=== PATIENT | female | born 1995 | race African-American/Black ===

== ENCOUNTER 2020-05-07 10:15 | Outpatient (REF) | payer MEDICAID, SELFPAY | END 2020-05-07 10:16 | disposition home or self-care (01) | LOC: HO.LAB 10:15 | PROVIDERS: Visit Provider Internal Medicine | DX: Z20.828 Contact with and (suspected) exposure to other viral communicable diseases (principal) | CPT/HCPCS: U0003 ==

== ENCOUNTER → 2020-05-20 10:45 | Outpatient (BNVA) | payer MEDICAID, SELFPAY | PROVIDERS: Visit Provider Advanced Practice Midwife | DX: Z30.42 Encounter for surveillance of injectable contraceptive (principal) | CPT/HCPCS: 96372; 99211; J1050 ==

== ENCOUNTER 2021-01-29 23:44 | Emergency (ER) | payer MEDICAID, SELFPAY ==
[2021-01-30] VITALS: BP 124/79; PULSE 68; RESP 18; TEMP 36.6; O2SAT 99; BMI 36.6
--- NOTE | 2021-01-30 00:52 | ED_ITS ---
HPI - Abdominal Pain General Chief Complaint: Abdominal Pain Stated Complaint: vaginal pain Time Seen by Provider: 01/30/21 00:41 Source: patient Mode of arrival: ambulatory Limitations: no limitations History of Present Illness HPI narrative: Patient comes emergency room complaining of vaginal pain. Patient states that approximately 3 days ago, she had a thomas friend staying at her place, patient states that she was too drunk and does not remember anything. Patient states that in the morning after being drunk she woke up complaining of vaginal pain. Patient requesting a test and requesting to be treated for possible STDs patient complaining of continued vaginal discomfort, no discharge, no vaginal bleeding. Related Data Previous Rx's Medication Instructions Recorded doxycycline hyclate 100 mg PO BID #14 tab 01/30/21 metronidazole 250 mg PO BID #14 tab 01/30/21 Allergies Allergy/AdvReac Type Severity Reaction Status Date / Time No Known Allergies Allergy Unverified 03/24/20 17:37 [No Known Allergies*] dogs/cats Allergy Unknown Uncoded 03/02/20 00:00 latex Allergy Unknown rash Uncoded 03/02/20 00:00 Review of Systems Review of Systems Constitutional : No Weight loss, No Fever, No Chills, No Night Sweats, No Fatigue, No Malaise ENT/Mouth : No Hearing loss, No Ear Pain, No Nasal Congestion, No Sinus Pain, No Hoarseness, No sore throat, No Rhinorrhea, No Swallowing Difficulty Eyes: No Eye Pain, No Swelling, No Redness, No Foreign Body, No Discharge, No Vision Changes Cardiovascular : No Chest Pain, No SOB, No Dyspnea on Exertion, No Orthopnea, No Edema, No Palpitations Respiratory : No Cough, No Sputum, No Wheezing, No Smoke Exposure, No Dyspnea Gastrointestinal : No Nausea, No Vomiting, No Diarrhea, No Constipation, No abdominal Pain, No Hematochezia, No Melena Genitourinary : no irregular bleeding, No Dysuria, No Urinary Frequency, No Hematuria, No Urinary Incontinence, No Urgency, No Flank Pain, No Urinary Flow Changes, No Hesitancy, complaining of constant vaginal discomfort Musculoskeletal : No joint pain, No Myalgias, No Joint Swelling Skin : No Skin Lesions, No rash Neuro : No Weakness, No Numbness, No Paresthesias, No Loss of Consciousness, No Dizziness, No Headache Psych : No Anxiety/Panic, No Depression, No SI/HI/AH/VH, No Social Issues, Heme/Lymph: No Bruising, No Bleeding,No Lymphadenopathy Endocrine : No Polyuria, No Polydipsia, No Temperature Intolerance Physical Exam Vital Signs: Vital Signs: Last Vital Signs Temp 97.9 F 01/30/21 00:00 Pulse 68 01/30/21 00:00 Resp 18 01/30/21 00:00 BP 124/79 01/30/21 00:00 Pulse Ox 99 01/30/21 00:00 Body Mass Index 36.6 Appearance: Alert. Oriented X3. No acute distress. Eyes: Pupils equal, round and reactive to light. ENT: Pharynx normal. Neck: Normal inspection. Neck supple. No lymph nodes noted. No crepitus CVS: Normal heart rate and rhythm. Pulses normal. Normal S1 and S2 Respiratory: No respiratory distress. Breath sounds normal. No Wheezing. No rales Abdomen: Soft and nontender. No rigidity. No distention. : Normal cervical and vaginal exam Skin: Skin warm and dry. Normal skin color. Normal skin turgor. Extremities: No lower extremity edema. No Lacerations. No Rash Neuro: Oriented X 3. No motor deficit. No sensory deficit. Moving all extermities. No slurred speech. Course Course Course Narrative: test negative. Patient was getting a 1st dose of IM ceftriaxone, p.o. doxycycline and metronidazole. Patient however is cells have this is MDM - Abdominal Pain Lab Data Labs: Lab Results 01/30/21 01/30/21 Range/Units 01:04 01:05 Urine Color YELLOW Urine Appearance CLEAR Urine pH 6.0 (5.0-8.0) Ur Specific [place] 1.020 (1.005-1.025) Urine Protein NEG (NEG-TRACE) MG/DL Urine Glucose (UA) NEG (NEG) MG/DL Urine Ketones NEG (NEG) MG/DL Urine Blood NEG (NEG) Urine Nitrite NEG (NEG) Ur Leukocyte Esterase NEG (NEG) Urine Test NEGATIVE (NEGATIVE) Discharge Plan Discharge Clinical Impression: Possible exposure to STD Patient Disposition: Home, Self-Care Instructions: Sexually Transmitted Diseases (ED) Additional Instructions: [facility] and requested additional testing such as HIV and hepatitis panel. Please follow-up with your primary care physician tomorrow. If you have any worsening or new symptoms, please return to the emergency room or call 911 Prescriptions: New doxycycline hyclate 100 mg tablet 100 mg PO BID Qty: 14 RF: 0 metronidazole 250 mg tablet 250 mg PO BID Qty: 14 RF: 0 No Action medroxyprogesterone [Depo-Provera] 150 mg/mL syringe 150 mg IM ONCE Qty: 1 RF: 0 PMFSH Past Medical History Medical History No known health problems Social History Social History Advance Directives: No Patient : No
[2021-01-30 01:14] LABS: Glucose Urine UA NEG (NEG); Leukocyte Esterase Urine NEG (NEG); Nitrite Urine NEG (NEG); Urine Blood NEG (NEG); Urine Ketones NEG (NEG); Urine Protein NEG (NEG-TRACE)
[2021-01-30 01:15] LABS: UPreg QC Valid YES; Urine Pregnancy NEGATIVE (NEGATIVE)
[2021-01-30 01:16] LABS: Appearance Urine CLEAR; Color Urine YELLOW
[2021-01-30] MEDS: metroNIDAZOLE 500 MG TABLET PO (01:37)
[2021-01-30] MEDS: cefTRIAXone sodium 500 MG, Lidocaine HCl 1 % MPF 1 ML IM (01:38)
[2021-01-30 03:00] LABS: CT PCR NOT DETECTED (Not Detect.); NG PCR NOT DETECTED (Not Detect.)
[2021-01-30 09:10] LABS: BV Int Neg Control Negative (Negative); BV Int Pos Control Positive (Positive)
== END 2021-01-30 01:52 | disposition home or self-care (01) ==
PROVIDERS: Emergency Provider Emergency Medicine
DX: Z11.3 Encounter for screening for infections with a predominantly sexual mode of transmission (principal); R10.2 Pelvic and perineal pain
CPT/HCPCS: 81003; 81025; 87480; 87491; 87510; 87591; 87660; 96372; 99283; 99284; J0696

== ENCOUNTER 2021-04-13 12:36 | Emergency (ER) | payer MEDICAID, SELFPAY ==
[2021-04-13 13:42] VITALS: BP 125/95; PULSE 88; RESP 16; TEMP 36.4; O2SAT 100; BMI 35.3
--- NOTE | 2021-04-13 14:06 | ED_ITS ---
HPI - Back Pain/Injury General Chief Complaint: Back Pain/Injury Stated Complaint: BACK INJ WORK RELATED Time Seen by Provider: 04/13/21 13:55 Source: patient Mode of arrival: ambulatory History of Present Illness HPI Narrative: 26-year-old female with no significant past medical history presenting to the ED complaining of acute onset low back pain s/p repositioning patient at work on Saturday. 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 Denies direct trauma/fall. Denies radiation of pain down lower extremities. Denies numbness, tingling, weakness, urinary incontinence/retention, hematuria, flank pain MD elicited complaint: back pain Related Data Previous Rx's Medication Instructions Recorded doxycycline hyclate 100 mg tablet 100 mg PO BID #14 tab 01/30/21 metronidazole 250 mg tablet 250 mg PO BID #14 tab 01/30/21 acetaminophen 500 mg tablet 500 mg PO Q6H PRN #20 tab 04/13/21 (Tylenol Extra Strength) cyclobenzaprine 5 mg tablet 5 mg PO Q8H PRN 5 Days #14 tab 04/13/21 lidocaine 5 % topical patch 1 patch TOPICAL DAILY PRN #30 ea 04/13/21 (Lidoderm) MDD remove after 12 hours naproxen 500 mg tablet 500 mg PO BID PRN 10 Days #20 tab 04/13/21 Allergies Allergy/AdvReac Type Severity Reaction Status Date / Time No Known Allergies Allergy Verified 04/13/21 13:42 [No Known Allergies*] dogs/cats Allergy Unknown Watery Eye Uncoded 04/13/21 13:42 latex Allergy Unknown rash Uncoded 03/02/20 00:00 Review of Systems Review of Systems: Constitutional: No Fever, No Chills ENT/Mouth: No Ear Pain, No Nasal Congestion, No sore throat, No Rhinorrhea Cardiovascular: No Chest Pain, No SOB Respiratory: No Cough, No Wheezing Gastrointestinal: No Nausea, No Vomiting, No Abdominal pain Genitourinary: No Dysuria, No Urinary Frequency, No Hematuria, No Urinary Incontinence/retention, No Flank Pain Musculoskeletal: + joint pain, No Myalgias, No Joint Swelling Skin: No Skin Lesions, No rash Neuro: No Weakness, No Numbness, No Paresthesias Yes all other systems are reviewed and are negative Neurologic: Denies Sensory deficit (Neuro) PMFSH Past Medical History Attestation statement: The following information was validated with the patient. Source: nursing notes reviewed Medical History No known health problems Social History Social History Advance Directives: No Advance Directives Information Provided: No Physical Exam Vital Signs: Vital Signs: Last Vital Signs Temp 97.6 F 04/13/21 13:42 Pulse 88 04/13/21 13:42 Resp 16 04/13/21 13:42 BP 125/95 H 04/13/21 13:42 Pulse Ox 100 04/13/21 13:42 Body Mass Index 35.3 Const: General: cooperative and healthy appearing Orientation/consciousness: patient oriented x3 Limitations: no limitations HENMT: Head: Yes normal to inspection Ears: hearing grossly normal bilaterally General nose exam: Normal external nose present Face and sinus: Yes normal facial exam Eyes: General: appearance normal, both eyes and all related structures EOM: EOMs intact bilaterally Neck: Other: No midline cervical spinous tenderness/step-off or deformity Neck: Yes normal visual inspection Resp: Effort & Inspection: normal respiratory effort and not labored Cardio: Rate: regular rate : General: Yes no CVA tenderness Back/Spine/Pelvis: Other: No midline thoracic/lumbar spinous tenderness/step- off or deformity. Bilateral thoracic & lumbar paraspinal MSK tenderness to palpation Back: no CVA tenderness Skin: Rashes: no rashes Wounds: no wounds Neuro: Other: No saddle anesthesia, ambulating with steady gait, strength intact throughout General: patient oriented x3, gait normal, tone normal, moves all extremities and no focal motor deficits Gait exam (Neuro): Normal gait present Motor exam (neuro): 5/5 motor strength present throughout and Normal motor muscle tone present throughout Sensory Exam: No Sensory deficit (Neuro) Extrem: General: Yes normal to inspection MDM - Back Pain/Injury MDM Narrative Medical decision making narrative: 26-year-old female with no significant past medical history presenting to the ED complaining of acute onset low back pain s/p repositioning patient at work on Saturday. On exam VSS, NAD/well-appearing, no midline spinous tenderness throughout, no red flag symptoms, ambulating with steady gait, no saddle anesthesia. Likely MSK pain/strain/muscle spasming. Low concern for cauda equina/cord compression Will symptomatically treat and have patient follow-up with [facility] Medical Records Attestation: I reviewed the patient's medical records. Lab Data Attestation: I reviewed the patient's lab results. Discharge Plan Discharge Clinical Impression: Strain of lumbar region Qualifiers: Encounter type: initial encounter Qualified Code(s): S39.012A - Strain of muscle, fascia and tendon of lower back, initial encounter Patient Disposition: Home, Self-Care Instructions: Acute Low Back Pain (ED) Additional Instructions: Your pain is likely musculoskeletal Flexeril is a muscle relaxer, take at night as it makes you drowsy, do not drive, drink alcohol, or operate machinery while taking it Naproxen as an anti-inflammatory / pain medication, take with food Lidoderm patches are numbing patches, apply to painful area In addition take Tylenol at home If symptoms persist or worsen, pain becomes unbearable, you developed urinary retention or incontinence, or weakness return to the ED Prescriptions: New acetaminophen [Tylenol Extra Strength] 500 mg tablet 500 mg PO Q6H PRN (Reason: pain or fever) Qty: 20 RF: 0 lidocaine [Lidoderm] 5 % adhesive patch,medicated 1 patch topical DAILY MDD remove after 12 hours PRN (Reason: pain) Qty: 30 RF: 0 naproxen 500 mg tablet 500 mg PO BID PRN (Reason: pain) 10 Days Qty: 20 RF: 0 cyclobenzaprine 5 mg tablet 5 mg PO Q8H PRN (Reason: pain (scale score 7-10)) 5 Days Qty: 14 RF: 0 No Action doxycycline hyclate 100 mg tablet 100 mg PO BID Qty: 14 RF: 0 metronidazole 250 mg tablet 250 mg PO BID Qty: 14 RF: 0 medroxyprogesterone [Depo-Provera] 150 mg/mL syringe 150 mg IM ONCE Qty: 1 RF: 0 Referrals: [facility] [Outside] - 3 days Stand Alone Forms: Work/School Release
== END 2021-04-13 14:40 | disposition home or self-care (01) ==
PROVIDERS: Emergency Provider Emergency Medicine
DX: S39.012A Strain of muscle, fascia and tendon of lower back, initial encounter (principal); X50.1XXA Overexertion from prolonged static or awkward postures, initial encounter; Y93.9 Activity, unspecified; Y92.9 Unspecified place or not applicable; Y99.0 Civilian activity done for income or pay
CPT/HCPCS: 99283

== ENCOUNTER → 2021-04-21 10:42 | Outpatient (BNVA) | payer MEDICAID, SELFPAY | PROVIDERS: Visit Provider Physician Assistant | DX: S39.012A Strain of muscle, fascia and tendon of lower back, initial encounter (principal); X50.1XXA Overexertion from prolonged static or awkward postures, initial encounter | CPT/HCPCS: 99203 ==

== ENCOUNTER → 2021-04-27 13:55 | Outpatient (BNVA) | payer MEDICAID, SELFPAY | PROVIDERS: Visit Provider Physician Assistant | DX: S39.012A Strain of muscle, fascia and tendon of lower back, initial encounter (principal); X50.1XXA Overexertion from prolonged static or awkward postures, initial encounter | CPT/HCPCS: 99213 ==

== ENCOUNTER 2021-10-12 10:13 | Emergency (ER) | payer MEDICAID, SELFPAY ==
--- NOTE | ~2021-10-12 | US_ITS ---
EXAMINATION: US OBSTETRICAL ULTRASOUND CLINICAL INFORMATION: Abdominal pain. COMPARISON: None. LMP: 09/08/2021. Gestational age by maternal dates is 4 weeks 6 days. Estimated date of delivery by maternal dates is 06/15/2022. TECHNIQUE: Transabdominal and endovaginal sonographic evaluation of the pelvis. FINDINGS: Anteverted uterus. There is a complex cystic structure in the endometrial cavity identified. No associated yolk sac or pole. This has complex internal echoes. If this were a gestational sac this has a mean sac diameter of 1.94 cm corresponding to a gestational age of 7 weeks 0 days MATERNAL ADNEXA: The right maternal ovary measures 4 x 2.1 x 3.2 cm. The left maternal ovary measures 2.9 x 2 x 2.1 cm. There is no significant maternal adnexal mass. No maternal pelvic ascites. US/US OB pelvic and transvaginal IMPRESSION: No definite intrauterine identified. No evidence of ectopic . Within the endometrial canal there is a complex area of fluid. There is no yolk sac or gestational sac. This could represent blighted ovum. Based on the size, this is less likely to represent a normal gestational sac with simply early stage of . Continued follow-up.
[2021-10-12 10:23] VITALS: BP 128/73; PULSE 99; RESP 16; TEMP 36.7; O2SAT 98; BMI 36.6
[2021-10-12 10:38] LABS: MANUAL DIFF FLAG NO
[2021-10-12 10:41] LABS: Basophils Percent Auto 0.4 % (0-2); Eosinophils Absolute Auto 0.3 X10*3/uL (0.0-0.4); Eosinophils Percent Auto 3.1 % (0-4); Hematocrit 39.2 % (37.0-47.0); Imm Gran Abs Auto 0.03 X10*3/uL (0.00-0.03); Imm Gran Pct Auto 0.4 % (0.0-0.4); Lymphocytes Absolute Auto 2.2 X10*3/uL (1.2-4.9); Lymphocytes Percent Auto 26.6 % (20-40); Mean Corpuscular HGB Conc 33.2 g/dl (31.0-35.0); Mean Corpuscular Hemoglobin 25.8 pg (27.0-33.0); Mean Corpuscular Volume 77.8 fL (80.0-98.0); Mean Platelet Volume 10.2 fL (9.4-12.3); Monocytes Absolute Auto 0.5 X10*3/uL (0.1-1.2); Monocytes Percent Auto 6.1 % (2-11); Neutrophils Absolute Auto 5.1 x10*3/uL (2.0-8.3); Neutrophils Percent Auto 63.4 % (45-73); Platelet Count 301 X10*3/uL (160-400); Red Blood Count 5.04 X10*6/uL (4.20-5.50); Red Cell Distribution Width 16.3 % (11.0-16.0); White Blood Count 8.1 X10*3/uL (4.8-10.8)
[2021-10-12 10:44] LABS: Appearance Urine CLEAR; Color Urine YELLOW; Glucose Urine UA NEG (NEG); Leukocyte Esterase Urine TRACE (NEG); Nitrite Urine NEG (NEG); UACC Culture Trigger YES; Urine Blood TRACE (NEG); Urine Ketones NEG (NEG); Urine Protein NEG (NEG-TRACE)
[2021-10-12 10:45] LABS: UPreg QC Valid YES; Urine Pregnancy POSITIVE (NEGATIVE)
[2021-10-12 10:54] LABS: Anion Gap 11 (12-20); Blood Urea Nitrogen 6 mg/dL (9-16); Calcium 9.2 mg/dL (8.4-10.2); Carbon Dioxide 25 mmol/L (22-29); Chloride 107 mmol/L (96-108); Estimated Glomerular Filt Rate > 60; Glucose Random 104 mg/dL (60-115); Potassium 3.7 mmol/L (3.3-5.1); Sodium 139 mmol/L (135-145)
[2021-10-12 10:56] LABS: Mucus Urine 1+ /LPF
[2021-10-12 10:57] LABS: Squamous Epithelial Cell Urine 2+ /LPF
[2021-10-12 11:04] LABS: HCG Quantitative 209 mIU/mL
--- NOTE | 2021-10-12 11:41 | ED.ABDPAIN ---
HPI - Abdominal Pain General Chief Complaint: Abdominal Pain Stated Complaint: abd pain Time Seen by Provider: 10/12/21 11:13 Source: patient Mode of arrival: ambulatory Limitations: no limitations History of Present Illness HPI narrative: Patient is a 26 year old female presenting to the emergency department today with epigastric pain and being . Patient states that she found out yesterday she is and has been having epigastric pain. Patient states that she has had 2 previous pregnancies with healthy children. Patient denies any vaginal bleeding, vaginal discharge, dizziness, lightheadedness, nausea, vomiting, fever, chills, blurry vision, double vision, loss of vision, chest pain, difficulty breathing, shortness of breath, back pain, night sweats, pain with urination, increased urinary frequency, increased urinary urgency, blood in her urine or stool, syncope or a near syncopal episode, recent trauma or falls, bowel incontinence, bladder incontinence, bowel retention, bladder retention, or any other complaints at this time. MD elicited complaint: abdominal pain Related Data Previous Rx's Medication Instructions Recorded doxycycline hyclate 100 mg tablet 100 mg PO BID #14 tab 01/30/21 metronidazole 250 mg tablet 250 mg PO BID #14 tab 01/30/21 acetaminophen 500 mg tablet 500 mg PO Q6H PRN #20 tab 04/13/21 (Tylenol Extra Strength) cyclobenzaprine 5 mg tablet 5 mg PO Q8H PRN 5 Days #14 tab 04/13/21 lidocaine 5 % topical patch 1 patch TOPICAL DAILY PRN #30 ea 04/13/21 (Lidoderm) MDD remove after 12 hours naproxen 500 mg tablet 500 mg PO BID PRN 10 Days #20 tab 04/13/21 Allergies Allergy/AdvReac Type Severity Reaction Status Date / Time No Known Allergies Allergy Verified 04/13/21 13:42 [No Known Allergies*] dogs/cats Allergy Unknown Watery Eye Uncoded 04/13/21 13:42 latex Allergy Unknown rash Uncoded 03/02/20 00:00 Review of Systems Constitutional: Reports no additional constitutional complaints, Denies chills, Denies fever(s) and Denies night sweats Eyes: Reports no additional eye complaints, Denies blurry vision, Denies change in vision, Denies diplopia, Denies eye discharge, Denies loss of vision and Denies eye pain Denies dizziness Cardiovascular: Reports no additional cardiovascular complaints, Denies chest pain, Denies lightheadedness, Denies Loss of Consciousness and Denies dyspnea Respiratory: Reports no additional respiratory complaints and Denies dyspnea Gastrointestinal: Reports no additional gastrointestinal complaints, Reports abdominal pain, Denies melena, Denies hematochezia, Denies change in bowel habits and Denies change in stool character Genitourinary: Denies hematuria, Denies urinary frequency, Denies dysuria, Denies urinary incontinence, Denies urinary hesitancy and Denies urinary urgency Musculoskeletal: Reports no additional musculoskeletal complaints, Denies numbness and Denies tingling Denies dizziness, Denies loss of vision, Denies numbness and Denies tingling Psychiatric: Reports no additional psychiatric complaints Endocrine: Reports no additional endocrine complaints Hematologic/Lymphatic: Reports no additional hematologic/lymphatic complaints Allergic/Immunologic: Reports no additional allergic/immunologic complaints PMFSH Past Medical History Attestation statement: The following information was validated with the patient. Source: old records reviewed Medical History No known health problems Social History Social History Advance Directives: No Advance Directives Information Provided: Yes Patient : Yes Physical Exam ED Vital Signs: Vital Signs - 24 hr 10/12/21 10:23 10/12/21 12:14 Temperature 98.1 F 98.2 F Pulse Rate 99 78 Respiratory Rate 16 16 Blood Pressure 128/73 111/64 Pulse Oximetry 98 98 BMI result Body Mass Index 36.6 Const General: cooperative, no acute distress, alert and awake Nutritional Appearance: well nourished Orientation/consciousness: patient oriented x3 Limitations: no limitations [facility] Head: Yes normal to inspection and Yes atraumatic Ears: hearing grossly normal bilaterally and external ears normal General nose exam: Normal external nose present, no nasal discharge noted and no epistaxis Face and sinus: Yes normal facial exam, No abrasion and No laceration Mouth: Normal oral and palatal mucosa present, no drooling and no muffled voice Eyes General: appearance normal, both eyes and all related structures Periorbital: periorbital findings normal Eyelids: Yes eyelids normal Conjunctivae: conjunctivae normal Pupils: Equal, round and reactive pupils present EOM: EOMs intact bilaterally Neck Neck: Yes normal visual inspection, Yes full ROM and Yes no lymphadenopathy Chest Chest palpation & inspection: normal inspection of the chest Resp Effort & Inspection: normal respiratory effort and able to speak in complete sentences Auscultation: clear to auscultation bilaterally Cardio Rate: regular rate Rhythm: regular rhythm GI Inspection: Yes normal to inspection Palpation (GI): Soft to palpation, not firm, nontender and no guarding Neuro General: patient oriented x3 and moves all extremities Cranial nerves: Yes Equal, round and reactive pupils present Cognition (Neuro): normal cognition Motor exam (neuro): 5/5 motor strength present throughout Sensory Exam: Normal double simultaneous stimulation for sensation Coordination: [id number] test normal Extrem General: Yes normal to inspection, Yes full ROM and Yes capillary refill normal Psych Appearance: grossly normal Mental Status: mental status grossly normal Affect: normal affect Attitude: cooperative Thought process: Normal thought process present Thought content: Normal thought content present Insight: Good insight present (Psych) MDM - Abdominal Pain MDM Narrative Medical decision making narrative: Patient is a 26 year old female presenting to the emergency department today with epigastric pain. Patient's physical exam was unremarkable. Patient's blood work was unremarkable. Patient's HCG quant was 209. Patient's transvaginal US showed no definite intrauterine and no evidence of ectopic . I explained my physical exam findings as well as all test results to the patient. I answered all questions asked by the patient. I stressed the importance of the patient following up with her OBGYN in 4 days for repeat beta HCG and a possible repeat US. I stressed the importance of the patient taking her medication as prescribed. I stressed the importance of the patient following up with her primary care provider. I stressed the importance of the patient returning to the emergency department immediately if her symptoms were to worsen or if she were to develop any dizziness, shortness of breath, difficulty breathing, chest pain, blurry vision, loss of vision, nausea, vomiting, abdominal pain, fever, chills, back pain, or any other complaints. Patient verbalized agreement and understanding with this treatment plan and discharge, Differential Diagnosis Differential diagnosis: Likely abdominal pain Medical Records Attestation: I reviewed the patient's medical records. Lab Data Attestation: I reviewed the patient's lab results. Result diagrams: 10/12/21 10:32 10/12/21 10:32 Labs: Lab Results 10/12/21 10/12/2122 Range/Units 10:32 10:32 10:33 WBC 8.1 (4.8-10.8) X10*3/uL RBC 5.04 (4.20-5.50) X10*6/uL Hgb 13.0 (12.0-16.0) g/dl Hct 39.2 (37.0-47.0) % MCV 77.8 L (80.0-98.0) fL MCH 25.8 L (27.0-33.0) pg MCHC 33.2 (31.0-35.0) g/dl RDW 16.3 H (11.0-16.0) % Plt Count 301 (160-400) X10*3/uL MPV 10.2 (9.4-12.3) fL Immature Gran % (Auto) 0.4 (0.0-0.4) % Neut % (Auto) 63.4 (45-73) % Lymph % (Auto) 26.6 (20-40) % [place] % (Auto) 6.1 (2-11) % Eos % (Auto) 3.1 (0-4) % Baso % (Auto) 0.4 (0-2) % Lymph # (Auto) 2.2 (1.2-4.9) X10*3/uL [place] # (Auto) 0.5 (0.1-1.2) X10*3/uL Eos # (Auto) 0.3 (0.0-0.4) X10*3/uL Baso # (Auto) 0.0 (0.0-0.2) X10*3/uL Abs Immat Gran (auto) 0.03 (0.00-0.03) X10*3/uL Absolute Neuts (auto) 5.1 (2.0-8.3) x10*3/uL Absolute Nucleated RBC 0.000 (0.0-0.012) X10*3/uL Nucleated RBC % (auto) 0.0 (0.0-0.2) /100WBC Sodium 139 (135-145) mmol/L Potassium 3.7 (3.3-5.1) mmol/L Chloride 107 (96-108) mmol/L Carbon Dioxide 25 (22-29) mmol/L Anion Gap 11 L (12-20) BUN 6 L (9-16) mg/dL Creatinine 0.79 (0.5-1.4) mg/dL Estim Creat Clear Calc 115.0 Estimated GFR > 60 Random Glucose 104 (60-115) mg/dL Calcium 9.2 (8.4-10.2) mg/dL Beta HCG, Quant 209 mIU/mL Urine Color YELLOW Urine Appearance CLEAR Urine pH 6.0 (5.0-8.0) Ur Specific [place] 1.020 (1.005-1.025) Urine Protein NEG (NEG-TRACE) MG/DL Urine Glucose (UA) NEG (NEG) MG/DL Urine Ketones NEG (NEG) MG/DL Urine Blood TRACE (NEG) Urine Nitrite NEG (NEG) Ur Leukocyte Esterase TRACE H (NEG) Urine RBC 1-4 (0) /HPF Urine WBC 1-4 (0-4) /HPF Ur Squamous Epith Cells 2+ /LPF Urine Bacteria NONE /LPF Urine Mucus 1+ /LPF Urine Test (NEGATIVE) 10/12/21 10/12/21 Range/Units 10:33 14:21 WBC (4.8-10.8) X10*3/uL RBC (4.20-5.50) X10*6/uL Hgb (12.0-16.0) g/dl Hct (37.0-47.0) % MCV (80.0-98.0) fL MCH (27.0-33.0) pg MCHC (31.0-35.0) g/dl RDW (11.0-16.0) % Plt Count (160-400) X10*3/uL MPV (9.4-12.3) fL Immature Gran % (Auto) (0.0-0.4) % Neut % (Auto) (45-73) % Lymph % (Auto) (20-40) % [place] % (Auto) (2-11) % Eos % (Auto) (0-4) % Baso % (Auto) (0-2) % Lymph # (Auto) (1.2-4.9) X10*3/uL [place] # (Auto) (0.1-1.2) X10*3/uL Eos # (Auto) (0.0-0.4) X10*3/uL Baso # (Auto) (0.0-0.2) X10*3/uL Abs Immat Gran (auto) (0.00-0.03) X10*3/uL Absolute Neuts (auto) (2.0-8.3) x10*3/uL Absolute Nucleated RBC (0.0-0.012) X10*3/uL Nucleated RBC % (auto) (0.0-0.2) /100WBC Sodium (135-145) mmol/L Potassium (3.3-5.1) mmol/L Chloride (96-108) mmol/L Carbon Dioxide (22-29) mmol/L Anion Gap (12-20) BUN (9-16) mg/dL Creatinine (0.5-1.4) mg/dL Estim Creat Clear Calc Estimated GFR Random Glucose (60-115) mg/dL Calcium (8.4-10.2) mg/dL Beta HCG, Quant 218 mIU/mL Urine Color Urine Appearance Urine pH (5.0-8.0) Ur Specific [place] (1.005-1.025) Urine Protein (NEG-TRACE) MG/DL Urine Glucose (UA) (NEG) MG/DL Urine Ketones (NEG) MG/DL Urine Blood (NEG) Urine Nitrite (NEG) Ur Leukocyte Esterase (NEG) Urine RBC (0) /HPF Urine WBC (0-4) /HPF Ur Squamous Epith Cells /LPF Urine Bacteria /LPF Urine Mucus /LPF Urine Test POSITIVE H (NEGATIVE) Imaging Data Transvaginal ultrasound: Attestation: I personally reviewed and interpreted this imaging study as follows: Radiologist's impression: EXAMINATION:? US OBSTETRICAL ULTRASOUND CLINICAL INFORMATION:? Abdominal pain. COMPARISON:? None.? LMP: 09/08/2021. Gestational age by maternal dates is 4 weeks 6 days. Estimated date of delivery by maternal dates is 06/15/2022. TECHNIQUE: Transabdominal and endovaginal sonographic evaluation of the pelvis. ? FINDINGS: Anteverted uterus. There is a complex cystic structure in the endometrial cavity identified. No associated yolk sac or pole. This has complex internal echoes. If this were a gestational sac this has a mean sac diameter of 1.94 cm corresponding to a gestational age of 7 weeks 0 days MATERNAL ADNEXA: ? ? The right maternal ovary measures 4 x 2.1 x 3.2 cm. The left maternal ovary measures 2.9 x 2 x 2.1 cm. There is no significant maternal adnexal mass.? No maternal pelvic ascites. US/US OB pelvic and transvaginal IMPRESSION: No definite intrauterine identified. No evidence of ectopic . ? Within the endometrial canal there is a complex area of fluid. There is no yolk sac or gestational sac. This could represent blighted ovum. Based on the size, this is less likely to represent a normal gestational sac with simply early stage of . Continued follow-up. Dictated By: Missael Castro MD Signed By: Electronically signed by Missael Castro MD 10/12/21 [id number] Discharge Plan Discharge Clinical Impression: Patient Disposition: Home, Self-Care Instructions: (ED) Additional Instructions: Follow up with your OBGYN in 4 days for repeat beta HCG and possibly a repeat US. Follow up with your primary care provider. Return to the emergency department immediately if your symptoms worsen or if you develop any dizziness, shortness of breath, difficulty breathing, chest pain, blurry vision, loss of vision, nausea, vomiting, abdominal pain, fever, chills, back pain, or any other complaints. Prescriptions: No Action doxycycline hyclate 100 mg tablet 100 mg PO BID Qty: 14 0RF metronidazole 250 mg tablet 250 mg PO BID Qty: 14 0RF Rx Instructions: Do not drink alcohol while taking this medication acetaminophen [Tylenol Extra Strength] 500 mg tablet 500 mg PO Q6H PRN (Reason: pain or fever) Qty: 20 0RF lidocaine [Lidoderm] 5 % adhesive patch,medicated 1 patch topical DAILY MDD remove after 12 hours PRN (Reason: pain) Qty: 30 0RF Rx Instructions: leave on most painful area for up to 12 hrs naproxen 500 mg tablet 500 mg PO BID PRN (Reason: pain) 10 Days Qty: 20 0RF cyclobenzaprine 5 mg tablet 5 mg PO Q8H PRN (Reason: pain (scale score 7-10)) 5 Days Qty: 14 0RF medroxyprogesterone [Depo-Provera] 150 mg/mL syringe 150 mg IM ONCE Qty: 1 0RF Referrals: Saida Guzman [Primary Care Provider] - Chris Granda MD [Physician] - Stand Alone Forms: Work/School Release Interventions: ED Discharge Assessment Last Done: 10/12/21 15:28 Discharge Date/Time: 10/12/21 15:39 Print Language: British
[2021-10-12 12:14] VITALS: BP 111/64; PULSE 78; RESP 16; TEMP 36.8; O2SAT 98
[2021-10-12 14:50] LABS: HCG Quantitative 218 mIU/mL
== END 2021-10-12 15:39 | disposition home or self-care (01) ==
PROVIDERS: Physician Assistant Medical; Emergency Provider Emergency Medicine Emergency Medical Services; PCP Nurse Practitioner Family
DX: O26.891 Other specified pregnancy related conditions, first trimester (principal); R10.13 Epigastric pain; Z3A.01 Less than 8 weeks gestation of pregnancy
CPT/HCPCS: 36415; 76801; 76817; 80048; 81001; 81025; 84702; 85025; 87086; 99284

== ENCOUNTER 2021-10-16 11:41 | Outpatient (REF) | payer MEDICAID, SELFPAY ==
[2021-10-16 13:28] LABS: HCG Quantitative 1875 mIU/mL
== END 2021-10-16 11:42 | disposition home or self-care (01) ==
LOC: HO.LAB 11:41
PROVIDERS: PCP Nurse Practitioner Family; Visit Provider Obstetrics & Gynecology
DX: Z34.91 Encounter for supervision of normal pregnancy, unspecified, first trimester (principal)
CPT/HCPCS: 36415; 84702

== ENCOUNTER → 2021-10-17 12:42 | Outpatient (BNVA) | payer MEDICAID, SELFPAY | PROVIDERS: PCP Nurse Practitioner Family; Visit Provider Advanced Practice Midwife | DX: Z34.91 Encounter for supervision of normal pregnancy, unspecified, first trimester (principal); Z3A.00 Weeks of gestation of pregnancy not specified | CPT/HCPCS: 99212 ==

== ENCOUNTER 2021-10-18 13:40 | Outpatient (REF) | payer MEDICAID, SELFPAY ==
[2021-10-18 14:51] LABS: HCG Quantitative 4563 mIU/mL
== END 2021-10-18 13:41 | disposition home or self-care (01) ==
LOC: HO.LAB 13:40
PROVIDERS: PCP Nurse Practitioner Family; Visit Provider Advanced Practice Midwife
DX: O20.0 Threatened abortion (principal); Z3A.01 Less than 8 weeks gestation of pregnancy
CPT/HCPCS: 36415; 84702

== ENCOUNTER → 2021-10-26 11:43 | Outpatient (BNVA) | payer MEDICAID, SELFPAY | PROVIDERS: Visit Provider Advanced Practice Midwife | DX: Z34.80 Encounter for supervision of other normal pregnancy, unspecified trimester (principal); Z36.3 Encounter for antenatal screening for malformations | CPT/HCPCS: 81025; 99212 ==

== ENCOUNTER 2021-10-27 11:27 | Outpatient (REF) | payer MEDICAID, SELFPAY ==
--- NOTE | ~2021-10-27 | US_ITS ---
EXAMINATION: OBSTETRICAL ULTRASOUND, FIRST TRIMESTER HISTORY: 26-year-old at the floor viability LMP: 09/08/2021 COMPARISON: 10/12/2021 TECHNIQUE: Real time transabdominal imaging with color and M-mode Doppler. FINDINGS: A single, live IUP CRL of 0.5 mm c/w 6.2wks is noted. Heart Rate: 132 beats per minute. There is a small subchorionic bleed measuring 4.8 x 0.7 x 4.6 cm. Both maternal ovaries are seen and appear normal. GESTATIONAL AGE: 1. GA from LMP: 7.0 wks 2. GA from AUA: 6.2 wks ESTIMATED DATE OF DELIVERY: 1. LOR from LMP: 06/15/2022 2. LOR from AUA: 06/20/2022 US/US OB pelvic and transvaginal IMPRESSION: 1. A single live IUP 2. Size equals dates 3. Normal ovaries Thank you very much for this referral. This note was generated with a voice recognition program. Please excuse any errors which may have been overlooked during my review of this note. Sometimes these errors may affect the content or meaning of a given sentence.
== END 2021-10-27 11:28 | disposition home or self-care (01) ==
LOC: HO.US 11:27
PROVIDERS: Visit Provider Obstetrics & Gynecology
DX: Z34.91 Encounter for supervision of normal pregnancy, unspecified, first trimester (principal); Z3A.01 Less than 8 weeks gestation of pregnancy
CPT/HCPCS: 76801; 76817

== ENCOUNTER 2021-11-09 09:54 | Outpatient (REF) | payer MEDICAID, SELFPAY ==
[2021-11-09 13:03] LABS: Hemoglobin 12.1 g/dl (12.0-16.0); Mean Corpuscular HGB Conc 33.6 g/dl (31.0-35.0); Mean Corpuscular Hemoglobin 25.8 pg (27.0-33.0); Mean Corpuscular Volume 76.8 fL (80.0-98.0); Mean Platelet Volume 10.4 fL (9.4-12.3); Platelet Count 315 X10*3/uL (160-400); Red Blood Count 4.69 X10*6/uL (4.20-5.50); Red Cell Distribution Width 16.6 % (11.0-16.0); White Blood Count 10.9 X10*3/uL (4.8-10.8)
[2021-11-09 13:13] LABS: Glucose 1 Hour PP 50gm Dose 115 mg/dL (60-140)
[2021-11-09 13:18] LABS: Amphetamine Screen Urine Not Detected (Not Detect); Barbiturates, Urine Not Detected (Not Detect); Benzodiazepines Screen Urine Not Detected (Not Detect); Cannabinoid Screen Urine Not Detected (Not Detect); Cocaine Screen Urine Not Detected (Not Detect); Fentanyl, urine Not Detected (Not Detect); Opiate Screen Urine Not Detected (Not Detect); Phencyclidine Screen Urine Not Detected (Not Detect)
[2021-11-10 03:54] LABS: HBsAGNum1 0.64 S/CO (0.00-0.99); HIV AB/AG Nonreactive (Nonreactive); HIV Num 1 0.09 S/CO (0.00-0.99); Hepatitis B Surface Antigen Negative (Negative); ~HepC Num1 0.11 S/CO (0.00-0.79); ~Hepatitis C Antibody Nonreactive (Nonreactive)
[2021-11-10 07:40] LABS: Syphilis Screen Nonreactive (Nonreactive)
[2021-11-11 05:11] LABS: Rubella IgG Antibody 1.83 Index
[2021-11-14 09:07] LABS: Hematocrit 36.2 % (35.0-45.0); Hemoglobin 12.2 g/dL (11.7-15.5); MCH 26.1 pg (27.0-33.0); MCV 77.5 fL (80.0-100.0); RBC 4.67 Million/uL (3.80-5.10); RDW 16.7 % (11.0-15.0)
== END 2021-11-09 09:55 | disposition home or self-care (01) ==
LOC: HO.LAB 09:54
PROVIDERS: PCP Nurse Practitioner Family; Visit Provider Advanced Practice Midwife
DX: Z32.01 Encounter for pregnancy test, result positive (principal)
CPT/HCPCS: 80307; 83020; 85014; 85018; 85027; 85041; 86762; 86780; 86787; 86803; 86850; 86900; 86901; 87086; 87147; 87340; 87389; 99212

== ENCOUNTER 2021-11-29 13:16 | Emergency (ER) | payer MEDICAID, SELFPAY ==
[2021-11-29 13:40] VITALS: BP 122/45; PULSE 84; RESP 18; TEMP 36.7; O2SAT 100; BMI 37.9
[2021-11-29 15:43] LABS: MANUAL DIFF FLAG NO
[2021-11-29 15:45] LABS: Basophils Absolute Auto 0.1 X10*3/uL (0.0-0.2); Basophils Percent Auto 0.4 % (0-2); Eosinophils Absolute Auto 0.4 X10*3/uL (0.0-0.4); Eosinophils Percent Auto 2.6 % (0-4); Hematocrit 35.6 % (37.0-47.0); Hemoglobin 12.3 g/dl (12.0-16.0); Imm Gran Abs Auto 0.06 X10*3/uL (0.00-0.03); Imm Gran Pct Auto 0.4 % (0.0-0.4); Lymphocytes Absolute Auto 2.3 X10*3/uL (1.2-4.9); Lymphocytes Percent Auto 16.6 % (20-40); Mean Corpuscular HGB Conc 34.6 g/dl (31.0-35.0); Mean Corpuscular Hemoglobin 26.7 pg (27.0-33.0); Mean Corpuscular Volume 77.2 fL (80.0-98.0); Monocytes Absolute Auto 0.7 X10*3/uL (0.1-1.2); Monocytes Percent Auto 4.8 % (2-11); Neutrophils Absolute Auto 10.4 x10*3/uL (2.0-8.3); Neutrophils Percent Auto 75.2 % (45-73); Platelet Count 287 X10*3/uL (160-400); Red Blood Count 4.61 X10*6/uL (4.20-5.50); Red Cell Distribution Width 16.5 % (11.0-16.0); White Blood Count 13.8 X10*3/uL (4.8-10.8)
[2021-11-29 16:01] LABS: Alanine Aminotransferase 13 U/L (0-31); Albumin Level 3.6 g/dL (3.5-5.0); Alkaline Phosphatase 75 U/L (39-117); Anion Gap 10 (12-20); Aspartate Amino Transferase 15 U/L (5-31); Bilirubin Total 0.3 mg/dL (0.0-1.0); Blood Urea Nitrogen 6 mg/dL (9-16); Calcium 8.9 mg/dL (8.4-10.2); Carbon Dioxide 24 mmol/L (22-29); Chloride 106 mmol/L (96-108); Creatinine Clr Calc Pharmacy 130.6; Estimated Glomerular Filt Rate > 60; Glucose Random 85 mg/dL (60-115); Sodium 136 mmol/L (135-145); Total Protein 6.9 g/dL (6.5-8.0)
[2021-11-29 17:43] VITALS: BP 101/71; PULSE 75; RESP 16; TEMP 36.1; O2SAT 99
== END 2021-11-29 20:44 | disposition left against medical advice (07) ==
LOC: HO.ED 20:28
PROVIDERS: Emergency Provider Emergency Medicine; PCP Nurse Practitioner Family
DX: O21.9 Vomiting of pregnancy, unspecified (principal); Z3A.10 10 weeks gestation of pregnancy
CPT/HCPCS: 36415; 80053; 85025; 99283

== ENCOUNTER 2021-11-30 10:52 | Outpatient (REF) | payer MEDICAID, SELFPAY ==
[2021-12-01 11:08] LABS: BV Int Neg Control Negative (Negative); BV Int Pos Control Positive (Positive)
[2021-12-01 12:54] LABS: CT PCR NOT DETECTED (Not Detect.); NG PCR NOT DETECTED (Not Detect.)
[2021-12-26 22:17] LABS: HPV 16 RNA NOT DETECTED (NOT DETECTED); HPV mRNA E6/E7 rflx Detected (Not Detected)
== END 2021-11-30 10:53 | disposition home or self-care (01) ==
LOC: HO.LAB 10:52
PROVIDERS: Visit Provider Advanced Practice Midwife
DX: Z34.91 Encounter for supervision of normal pregnancy, unspecified, first trimester (principal); Z3A.11 11 weeks gestation of pregnancy
CPT/HCPCS: 81003; 87480; 87491; 87510; 87591; 87624; 87625; 87660; 88142; 99212

== ENCOUNTER 2021-12-01 13:55 | Outpatient (REF) | payer MEDICAID, SELFPAY ==
--- NOTE | ~2021-12-01 | US_ITS ---
EXAMINATION: US OBSTETRICAL FOLLOW UP WITH BIOPHYSICAL PROFILE CLINICAL INFORMATION: No heart tones at [facility] 11/30/2021. COMPARISON: Ultrasound OB 10/27/2021. TECHNIQUE: Real time transabdominal imaging with color and M-mode Doppler. There is intrauterine gestational sac and a pole with a crown-rump length measurement of 5.32 cm corresponding to 12 weeks 0 days and LOR of 06/15/2022. Based on LMP of 09/08/2021, the clinical gestational age is 12 weeks and 0 days and LOR of 06/15/2022. It is similar. There is visualization of gestational sac, pole and heart with a heart rate of 169 bpm. The yolk sac is not visualized. The right ovary measures 4.7 x 3.2 x 2.5 cm. There is a small corpus luteal cyst measuring 2.3 x 2 0.6 to 1.9 cm. The left ovary measures 3.2 x 1.6 x 3.0 cm. There is no free fluid in the cul-de-sac. US/US OB follow up IMPRESSION: Single live intrauterine fetus with an ultrasound gestational age of 12 weeks 0 days and LOR of 06/15/2022. The findings are similar and exact to the clinical gestational age based on LMP. Yolk sac is not seen. Corpus luteal cyst right ovary measuring 2.6 cm.
== END 2021-12-01 13:56 | disposition home or self-care (01) ==
LOC: HO.US 13:55
PROVIDERS: PCP Nurse Practitioner Family; Visit Provider Advanced Practice Midwife
DX: Z34.91 Encounter for supervision of normal pregnancy, unspecified, first trimester (principal); Z3A.12 12 weeks gestation of pregnancy
CPT/HCPCS: 76816

== ENCOUNTER 2021-12-08 09:06 | Outpatient (REF) | payer MEDICAID, SELFPAY ==
--- NOTE | ~2021-12-08 | US_ITS ---
EXAMINATION: OBSTETRICAL ULTRASOUND, FIRST TRIMESTER HISTORY: 26-year-old at the 13.0 weeks of gestation NT screening COMPARISON: 12/01/2021 TECHNIQUE: Real time transabdominal imaging with color and M-mode Doppler. FINDINGS: A single, live IUP CRL of 63.0 mm c/w 12.5wks is noted. Heart Rate: 156 beats per minute. Normal yolk sac seen. NT was 1.1.mm. NB Present The embryo appears sonographically wnl for this GA. Both maternal ovaries are seen and appear normal. GESTATIONAL AGE: 1. Established GA: 13.0 wks 2. GA from AUA: 12.5 wks ESTIMATED DATE OF DELIVERY: 1. Established LOR: 06/15/2022 2. LOR from AUA: 06/17/2022 US/US OB 1T nuc measure IMPRESSION: 1. A single live IUP 2. Size equals dates 3. NT of 1.1 mm MFM Consultation: I reviewed the ultrasound findings along with significance of NT measurement. The NT of less than 3mm is generally reassuring. However, the sensitivity for T21 detection is only 60%. I reviewed the availability of serum aneuploidy screening which includes cell-free DNA and placental protein based tests. I discussed the sensitivity, false-positive rate, and other limitations associated with each test. I also reviewed the availability of invasive diagnostic tests that are associated small but definite risk of miscarriage. We also reviewed the differences between screening tests and diagnostic tests. After our discussion, she opted for the First trimester screening that is based on cell-free DNA or non-invasive testing (NIPT). The result will be faxed to your office in approximately 7 days. A follow up at 18 weeks for survey has been scheduled. Thank you very much for this referral. Total time 20 minutes. The time spent was devoted to counseling the patient about the disease and diagnosis, coordinating care including reviewing her records, pertinent lab data and studies, as well as discussing diagnostic evaluation and workup, plan therapeutic interventions and future disposition of care. This includes any additional research needed to obtain further information in formulating the plan of care of this patient. This note was generated with a voice recognition program. Please excuse any errors which may have been overlooked during my review of this note. Sometimes these errors may affect the content or meaning of a given sentence.
== END 2021-12-08 09:07 | disposition home or self-care (01) ==
LOC: HO.US 09:06
PROVIDERS: Visit Provider Advanced Practice Midwife
DX: O35.9XX0 Maternal care for (suspected) fetal abnormality and damage, unspecified, not applicable or unspecified (principal); Z3A.13 13 weeks gestation of pregnancy
CPT/HCPCS: 76813

== ENCOUNTER 2021-12-27 11:53 | Emergency (ER) | payer MEDICAID, SELFPAY ==
[2021-12-27 11:57] VITALS: BP 110/65; PULSE 81; RESP 18; TEMP 36.7; O2SAT 100; BMI 36.6
[2021-12-27 12:08] LABS: MANUAL DIFF FLAG NO
[2021-12-27 12:10] LABS: Basophils Percent Auto 0.3 % (0-2); Eosinophils Absolute Auto 0.5 X10*3/uL (0.0-0.4); Hematocrit 34.8 % (37.0-47.0); Hemoglobin 11.9 g/dl (12.0-16.0); Imm Gran Abs Auto 0.07 X10*3/uL (0.00-0.03); Imm Gran Pct Auto 0.5 % (0.0-0.4); Lymphocytes Absolute Auto 1.9 X10*3/uL (1.2-4.9); Lymphocytes Percent Auto 12.6 % (20-40); Mean Corpuscular HGB Conc 34.2 g/dl (31.0-35.0); Mean Corpuscular Hemoglobin 26.4 pg (27.0-33.0); Mean Corpuscular Volume 77.2 fL (80.0-98.0); Monocytes Absolute Auto 0.5 X10*3/uL (0.1-1.2); Monocytes Percent Auto 3.5 % (2-11); Neutrophils Absolute Auto 12.3 x10*3/uL (2.0-8.3); Neutrophils Percent Auto 80.1 % (45-73); Platelet Count 268 X10*3/uL (160-400); Red Blood Count 4.51 X10*6/uL (4.20-5.50); Red Cell Distribution Width 15.7 % (11.0-16.0); White Blood Count 15.4 X10*3/uL (4.8-10.8)
[2021-12-27 12:22] LABS: Anion Gap 9 (12-20); Blood Urea Nitrogen 4 mg/dL (9-16); Calcium 8.5 mg/dL (8.4-10.2); Carbon Dioxide 23 mmol/L (22-29); Chloride 108 mmol/L (96-108); Creatinine Clr Calc Pharmacy 133.5; Estimated Glomerular Filt Rate > 60; Glucose Random 105 mg/dL (60-115); Potassium 3.7 mmol/L (3.3-5.1); Sodium 136 mmol/L (135-145)
[2021-12-27 12:30] LABS: COVID-19 Test Negative (Negative); IDNOW Serial# 9DB6401D
[2021-12-27 12:41] LABS: Alanine Aminotransferase 10 U/L (0-31); Albumin Level 3.4 g/dL (3.5-5.0); Alkaline Phosphatase 71 U/L (39-117); Aspartate Amino Transferase 16 U/L (5-31); Bilirubin Direct 0.2 mg/dL (0.0-0.5); Bilirubin Total 0.4 mg/dL (0.0-1.0); Lipase 14 U/L (8-78); Total Protein 6.2 g/dL (6.5-8.0)
--- NOTE | 2021-12-27 12:41 | ED_ITS ---
HPI - Nausea/Vomiting/Diarrhea General Chief complaint: Nausea/Vomiting/Diarrhea Stated complaint: 15 Wks Preg Nausea Vomiting Weak Time Seen by Provider: 12/27/21 12:23 Source: patient Mode of arrival: ambulatory Limitations: no limitations History of Present Illness HPI Narrative: 26 yo female with hx of asthma 15 weeks D = US has had hyperemesis her whole on B6/doxylamine and zofran without improvement. Comes today reports this week was worse and zofran not helping. No bleeding no pain no other complaints. MD elicited complaint: nausea and vomiting Pertinent past history: other (vomiting during ) Onset (ago): week(s) Description of vomiting: food contents and watery Associated nausea: Yes Associated abdominal pain: No Severity: moderate Exacerbating factors: eating Relieving factors: none Context: other (hyperemesis during this ) Associated symptoms: loss of appetite, malaise, nausea/vomiting and weakness Treatment prior to arrival: other (zofran) Related Data Previous Rx's Medication Instructions Recorded acetaminophen 500 mg tablet 500 mg PO Q6H PRN pain or fever 04/13/21 (Tylenol Extra Strength) #20 tabs vitamin with calcium 1 tab PO DAILY #30 tabs 10/17/21 no.72-iron 27 mg-folic acid 1 mg tablet ( Vitamins Plus Low Iron) doxylamine succinate 25 mg tablet 25 mg PO BEDTIME 30 days #30 tabs 11/09/21 (Unisom (doxylamine)) pyridoxine (vitamin B6) 25 mg 25 mg PO TID 30 days #90 tabs 11/09/21 tablet nitrofurantoin 100 mg PO BID 5 days #10 caps 12/27/21 monohydrate/macrocrystals 100 mg capsule (Macrobid) promethazine 25 mg rectal 25 mg SD Q6H PRN nausea and 12/27/21 suppository vomiting #12 ea Allergies Allergy/AdvReac Type Severity Reaction Status Date / Time No Known Allergies Allergy Verified 11/30/21 11:01 [No Known Allergies*] dogs/cats Allergy Unknown Watery Eye Uncoded 11/30/21 11:01 latex Allergy Unknown rash Uncoded 11/30/21 11:01 Review of Systems Review of Systems: Constitutional : No Weight loss, No Fever, No Chills ENT/Mouth : No sore throat, No Rhinorrhea Eyes: No Swelling, No Redness Cardiovascular : No Chest Pain, No SOB, NoEdema Respiratory : No Cough, No Sputum, No Wheezing Gastrointestinal : Positive Nausea, Positive Vomiting, no Diarrhea, no abdominal Pain, No Hematochezia, No Melena Genitourinary : No Dysuria, No Urinary Frequency, No Hematuria, No Urgency, no vag bleeding Musculoskeletal : No joint pain, No Myalgias, No Joint Swelling Skin : No Skin Lesions, No rash Neuro : No Weakness, No Numbness, No Dizziness, No Headache Psych : No Anxiety/Panic, No Depression Heme/Lymph: No Bruising, No Lymphadenopathy Endocrine : No Polyuria, No Polydipsia All other systems reviewed and are negative. Gastrointestinal: Gastrointestinal: Reports nausea PMFSH Past Medical History Attestation statement: The following information was validated with the patient. Medical History History of spontaneous Hx of ectopic Family History Family History (Updated 11/09/21 @ 10:06 by Gavi Rock LPN) Mother HTN (hypertension) Sickle cell trait Sister No problems noted. Social History Social History Household Members: Children Housing: Apartment Are you a primary resident care assistant to a significant other at home: No Do you presently have visiting nurse or other home services: No Alcohol intake: never Patient Tobacco Use Status: Never used Tobacco Use of substances other than those prescribed or required for medical reasons: No Trauma History: none voiced Special anastasia needs: No Agree to transfusion: Yes Advance Directives: No Advance Directives Information Provided: No Patient : Yes Sexual orientation: Straight/Heterosexual Gender identity: Female Physical Exam Vital Signs: Vital Signs: Last Vital Signs Temp 96.5 F L 12/27/21 14:15 Pulse 80 12/27/21 14:15 Resp 14 12/27/21 14:15 BP 113/47 L 12/27/21 14:15 Pulse Ox 100 12/27/21 14:15 O2 Del Method 12/27/21 14:15 BMI result Body Mass Index 36.6 Appearance: Alert. Oriented X3. No acute distress. Eyes: Pupils equal, round and reactive to light. ENT: Pharynx normal. Neck: Normal inspection. Neck supple. CVS: Normal heart rate and rhythm. Pulses normal. Respiratory: No respiratory distress. Breath sounds normal. Abdomen: Soft and nontender. Skin: Skin warm and dry. Normal skin color. Normal skin turgor. Extremities: No lower extremity edema. No calf ttp Neuro: Oriented X 3. No motor deficit. No sensory deficit. Course Course Course Narrative: able to tolerate PO stable for DC MDM - Nausea/Vomiting/Diarrhea MDM Narrative Medical decision making narrative: 26 yo female with hx of asthma 15 weeks D = US hx of hyperemesis during this here with c/o n/v at this time will need labs, UA, IVF x 2L, reglan and benadryl - anticipate DC home once feeling better and able to tolerate PO Lab Data Result diagrams: 12/27/21 12:05 12/27/21 12:05 Labs: Lab Results 12/27/21 12/27/21 12/27/21 Range/Units 12:05 12:05 12:05 WBC 15.4 H (4.8-10.8) X10*3/uL RBC 4.51 (4.20-5.50) X10*6/uL Hgb 11.9 L (12.0-16.0) g/dl Hct 34.8 L (37.0-47.0) % MCV 77.2 L (80.0-98.0) fL MCH 26.4 L (27.0-33.0) pg MCHC 34.2 (31.0-35.0) g/dl RDW 15.7 (11.0-16.0) % Plt Count 268 (160-400) X10*3/uL MPV 10.0 (9.4-12.3) fL Immature Gran % (Auto) 0.5 H (0.0-0.4) % Neut % (Auto) 80.1 H (45-73) % Lymph % (Auto) 12.6 L (20-40) % [place] % (Auto) 3.5 (2-11) % Eos % (Auto) 3.0 (0-4) % Baso % (Auto) 0.3 (0-2) % Lymph # (Auto) 1.9 (1.2-4.9) X10*3/uL [place] # (Auto) 0.5 (0.1-1.2) X10*3/uL Eos # (Auto) 0.5 H (0.0-0.4) X10*3/uL Baso # (Auto) 0.0 (0.0-0.2) X10*3/uL Abs Immat Gran (auto) 0.07 H (0.00-0.03) X10*3/uL Absolute Neuts (auto) 12.3 H (2.0-8.3) x10*3/uL Absolute Nucleated RBC 0.000 (0.0-0.012) X10*3/uL Nucleated RBC % (auto) 0.0 (0.0-0.2) /100WBC Sodium 136 (135-145) mmol/L Potassium 3.7 (3.3-5.1) mmol/L Chloride 108 (96-108) mmol/L Carbon Dioxide 23 (22-29) mmol/L Anion Gap 9 L (12-20) BUN 4 L (9-16) mg/dL Creatinine 0.68 (0.5-1.4) mg/dL Estim Creat Clear Calc 133.5 Estimated GFR > 60 Random Glucose 105 (60-115) mg/dL Calcium 8.5 (8.4-10.2) mg/dL Total Bilirubin 0.4 (0.0-1.0) mg/dL Direct Bilirubin 0.2 (0.0-0.5) mg/dL AST 16 (5-31) U/L ALT 10 (0-31) U/L Alkaline Phosphatase 71 (39-117) U/L Total Protein 6.2 L (6.5-8.0) g/dL Albumin 3.4 L (3.5-5.0) g/dL Lipase 14 (8-78) U/L Urine Color Urine Appearance Urine pH (5.0-8.0) Ur Specific [place] (1.005-1.025) Urine Protein (NEG-TRACE) MG/DL Urine Glucose (UA) (NEG) MG/DL Urine Ketones (NEG) MG/DL Urine Blood (NEG) Urine Nitrite (NEG) Ur Leukocyte Esterase (NEG) Urine RBC (0) /HPF Urine WBC (0-4) /HPF Ur Squamous Epith Cells /LPF Urine Bacteria /LPF COVID-19 (ALYSHA) Negative (Negative) COVID-19 Clin Com See Note 12/27/21 Range/Units 14:22 WBC (4.8-10.8) X10*3/uL RBC (4.20-5.50) X10*6/uL Hgb (12.0-16.0) g/dl Hct (37.0-47.0) % MCV (80.0-98.0) fL MCH (27.0-33.0) pg MCHC (31.0-35.0) g/dl RDW (11.0-16.0) % Plt Count (160-400) X10*3/uL MPV (9.4-12.3) fL Immature Gran % (Auto) (0.0-0.4) % Neut % (Auto) (45-73) % Lymph % (Auto) (20-40) % [place] % (Auto) (2-11) % Eos % (Auto) (0-4) % Baso % (Auto) (0-2) % Lymph # (Auto) (1.2-4.9) X10*3/uL [place] # (Auto) (0.1-1.2) X10*3/uL Eos # (Auto) (0.0-0.4) X10*3/uL Baso # (Auto) (0.0-0.2) X10*3/uL Abs Immat Gran (auto) (0.00-0.03) X10*3/uL Absolute Neuts (auto) (2.0-8.3) x10*3/uL Absolute Nucleated RBC (0.0-0.012) X10*3/uL Nucleated RBC % (auto) (0.0-0.2) /100WBC Sodium (135-145) mmol/L Potassium (3.3-5.1) mmol/L Chloride (96-108) mmol/L Carbon Dioxide (22-29) mmol/L Anion Gap (12-20) BUN (9-16) mg/dL Creatinine (0.5-1.4) mg/dL Estim Creat Clear Calc Estimated GFR Random Glucose (60-115) mg/dL Calcium (8.4-10.2) mg/dL Total Bilirubin (0.0-1.0) mg/dL Direct Bilirubin (0.0-0.5) mg/dL AST (5-31) U/L ALT (0-31) U/L Alkaline Phosphatase (39-117) U/L Total Protein (6.5-8.0) g/dL Albumin (3.5-5.0) g/dL Lipase (8-78) U/L Urine Color YELLOW Urine Appearance HAZY Urine pH 6.0 (5.0-8.0) Ur Specific [place] 1.015 (1.005-1.025) Urine Protein NEG (NEG-TRACE) MG/DL Urine Glucose (UA) NEG (NEG) MG/DL Urine Ketones NEG (NEG) MG/DL Urine Blood TRACE (NEG) Urine Nitrite NEG (NEG) Ur Leukocyte Esterase 3+ H (NEG) Urine RBC 0-2 (0) /HPF Urine WBC 15-29 H (0-4) /HPF Ur Squamous Epith Cells 3+ /LPF Urine Bacteria 2+ /LPF COVID-19 (ALYSHA) (Negative) COVID-19 Clin Com Discharge Plan Discharge Clinical Impression: Hyperemesis arising during , UTI (urinary tract infection) Patient Disposition: Home, Self-Care Instructions: Hyperemesis Gravidarum (ED), Urinary Tract Infection in (ED) Additional Instructions: return to ED for any worsening symptoms or concerns please follow up with your OB doctor take the medications if you cannot tolerate the zofran please use suppository Prescriptions: New promethazine 25 mg suppository 25 mg SD Q6H PRN (Reason: nausea and vomiting) Qty: 12 1RF nitrofurantoin monohyd/m-cryst [Macrobid] 100 mg capsule 100 mg PO BID 5 Days Qty: 10 0RF Rx Instructions: must administer with a meal/food No Action acetaminophen [Tylenol Extra Strength] 500 mg tablet 500 mg PO Q6H PRN (Reason: pain or fever) Qty: 20 0RF medroxyprogesterone [Depo-Provera] 150 mg/mL syringe 150 mg IM ONCE Qty: 1 0RF Vitamin Plus Low Iron 27 mg iron- 1 mg tablet 1 tab PO DAILY Qty: 30 11RF pyridoxine (vitamin B6) 25 mg tablet 25 mg PO TID 30 Days Qty: 90 1RF Unisom (doxylamine) 25 mg tablet 25 mg PO BEDTIME 30 Days Qty: 30 3RF Stand Alone Forms: Work/School Release
[2021-12-27] MEDS: Lactated Ringers 1,000 ML 999 ML IV ×2 (12:45→14:45)
[2021-12-27] MEDS: diphenhydrAMINE HCL 50 MG/ML VIAL 25 MG IVPUSH (12:47)
[2021-12-27] MEDS: Metoclopramide HCl 10 MG/2 ML VIAL IVPUSH (12:48)
[2021-12-27 12:50] VITALS: BP 108/42; PULSE 73; RESP 116
[2021-12-27 14:15] VITALS: BP 113/47; PULSE 80; RESP 14; TEMP 35.8; O2SAT 100
[2021-12-27 14:27] LABS: Appearance Urine HAZY; Color Urine YELLOW; Glucose Urine UA NEG (NEG); Leukocyte Esterase Urine 3+ (NEG); Nitrite Urine NEG (NEG); Specific Gravity - Urine 1.015 (1.005-1.025); UACC Culture Trigger YES; Urine Blood TRACE (NEG); Urine Ketones NEG (NEG); Urine Protein NEG (NEG-TRACE)
[2021-12-27 14:41] LABS: Bacteria Urine 2+ /LPF; RBC Urine 0-2 /HPF (0); Squamous Epithelial Cell Urine 3+ /LPF
== END 2021-12-27 15:48 | disposition home or self-care (01) ==
PROVIDERS: Emergency Provider Emergency Medicine; PCP Nurse Practitioner Family
DX: O21.0 Mild hyperemesis gravidarum (principal); O23.42 Unspecified infection of urinary tract in pregnancy, second trimester; N39.0 Urinary tract infection, site not specified; Z3A.15 15 weeks gestation of pregnancy; Z79.899 Other long term (current) drug therapy
CPT/HCPCS: 80048; 80076; 81001; 83690; 85025; 87086; 87635; 96361; 96374; 96375; 99284; J1200; J2765

== ENCOUNTER → 2022-01-04 14:11 | Outpatient (BNVA) | payer MEDICAID, SELFPAY | PROVIDERS: PCP Nurse Practitioner Family; Visit Provider Advanced Practice Midwife | DX: O09.12 Supervision of pregnancy with history of ectopic pregnancy, second trimester (principal); O99.012 Anemia complicating pregnancy, second trimester; D57.3 Sickle-cell trait; O99.820 Streptococcus B carrier state complicating pregnancy; Z3A.16 16 weeks gestation of pregnancy | CPT/HCPCS: 81003; 99212 ==

== ENCOUNTER → 2022-01-23 09:03 | Outpatient (BNVA) | payer MEDICAID, SELFPAY | PROVIDERS: PCP Nurse Practitioner Family; Visit Provider Obstetrics & Gynecology | DX: O09.12 Supervision of pregnancy with history of ectopic pregnancy, second trimester (principal); O09.292 Supervision of pregnancy with other poor reproductive or obstetric history, second trimester; O99.820 Streptococcus B carrier state complicating pregnancy; O98.312 Other infections with a predominantly sexual mode of transmission complicating pregnancy, second trimester; A63.0 Anogenital (venereal) warts; Z3A.19 19 weeks gestation of pregnancy | CPT/HCPCS: 99212 ==

== ENCOUNTER 2022-01-26 12:40 | Outpatient (REF) | payer MEDICAID, SELFPAY ==
--- NOTE | ~2022-01-26 | US_ITS ---
EXAMINATION: US OBSTETRICAL CLINICAL INFORMATION: 26-year-old at the 20.0 weeks of gestation Screening for anomaly COMPARISON: 12/08/2021 TECHNIQUE: Real-time transabdominal ultrasound was performed using C1-5 megahertz transducer. FINDINGS: A single, active, fetus is seen in breech presentation. The placenta is posterior without previa, and the amniotic fluid volume is wnl. MEASUREMENTS: 1. Biparietal Diameter: 4.4 cm; 19.2 wks 2. Occipital Frontal Diameter: 5.7 cm 3. Head Circumference: 16.7 cm; 19.3 wks 4. Abdominal Circumference: 13.8 cm; 19.2 wks 5. Femur Length: 3.1 cm; 19.4 wks 6. Humerus Length: 3.0 cm; 19.6 wks 7. Tibia Length: 2.6 cm; 19.2 wks 8. Ulna Length: 2.7 cm; 19.6 wks 9. Lateral ventricle: 0.61 cm 10. Cerebellum: 1.92 cm; 19.6 wks 11. Cisterna Magna: 0.6 cm 12. Nuchal Fold: 4.0 mm 13. Heart Rate: 135 beats per minute Rt ovary: normal Lt ovary: normal Cervical length 4.5 cm on T/A. GESTATIONAL AGE: 1. Established GA: 20.0 wks 2. GA from [facility]: 19.3 wks ESTIMATED DATE OF DELIVERY: 1. Established LOR: 06/15/2022 2. LOR from [facility]: 06/19/2022 ANATOMY: The visualized anatomy includes but not limited to: 1. Cranium: Normal 2. Intracranial anatomy: cavum septum pellucidi, lateral ventricles, choroid plexus, cerebellum, posterior fossa, third and fourth ventricles. 3. face: orbits, lip/palate, profile, nasal bone 4. Heart: four-chamber view of the heart, ventricular septum, foramen ovale, pulmonary vein, left and right outflow tracts, three-vessel view, 3 vessel trachea view, aortic and ductal arches, situs.. 5. Diaphragm: Normal 6. Abdominal wall: Normal 7. Cord Insertion: Normal 8. Spine: Cervical, thoracic, lumbar, sacral. 9. Stomach: Normal size and shape 10. Right Kidney: Normal 11. Left Kidney: Normal 12. 3 vessel cord: Normal 13. Upper extremity: Open hands, fifth digit. 14. Lower extremity: Tibia, fibula, bilateral feet. 15. Bladder: Normal 16. Genitalia: Female, patient aware US/US OB /maternal detail IMPRESSION: 1. Single, living, intrauterine with appropriate biometry. 2. Normal survey DISCUSSION: I reviewed today's ultrasound findings. We discussed the limitations of ultrasound in diagnosing aneuploidy and other congenital abnormalities. I reviewed the differences between screening test and diagnostic test. Amniocentesis was discussed and declined. She was informed that the baseline incidence of congenital abnormalities is approximately 3-5%. Not all these conditions are diagnosable in utero. RECOMMENDATIONS: 1. Please follow-up as clinically indicated. Thank you for allowing me to participate in her care. This note was generated with a voice recognition program. Please excuse any errors which may have been overlooked during my review of this note. Sometimes these errors may affect the content or meaning of a given sentence.
== END 2022-01-26 12:41 | disposition home or self-care (01) ==
LOC: HO.US 12:40
PROVIDERS: Visit Provider Advanced Practice Midwife
DX: Z34.92 Encounter for supervision of normal pregnancy, unspecified, second trimester (principal); Z36.3 Encounter for antenatal screening for malformations; Z3A.20 20 weeks gestation of pregnancy
CPT/HCPCS: 76811

== ENCOUNTER → 2022-02-02 13:29 | Outpatient (BNVA) | payer MEDICAID, SELFPAY | PROVIDERS: PCP Nurse Practitioner Family; Visit Provider Advanced Practice Midwife | DX: O09.12 Supervision of pregnancy with history of ectopic pregnancy, second trimester (principal); O99.012 Anemia complicating pregnancy, second trimester; D57.3 Sickle-cell trait; O99.820 Streptococcus B carrier state complicating pregnancy; Z3A.21 21 weeks gestation of pregnancy | CPT/HCPCS: 81003; 99212 ==

== ENCOUNTER → 2022-02-20 10:36 | Outpatient (BNVA) | payer MEDICAID, SELFPAY | PROVIDERS: Visit Provider Obstetrics & Gynecology | DX: Z34.82 Encounter for supervision of other normal pregnancy, second trimester (principal); Z3A.23 23 weeks gestation of pregnancy | CPT/HCPCS: 99212 ==

== ENCOUNTER → 2022-03-29 14:13 | Outpatient (BNVA) | payer MEDICAID, SELFPAY | PROVIDERS: Visit Provider Advanced Practice Midwife | DX: O36.8130 Decreased fetal movements, third trimester, not applicable or unspecified (principal); O26.893 Other specified pregnancy related conditions, third trimester; R42 Dizziness and giddiness; R51.9 Headache, unspecified; O99.013 Anemia complicating pregnancy, third trimester; D57.3 Sickle-cell trait; O99.820 Streptococcus B carrier state complicating pregnancy; O09.13 Supervision of pregnancy with history of ectopic pregnancy, third trimester; O09.293 Supervision of pregnancy with other poor reproductive or obstetric history, third trimester; Z3A.28 28 weeks gestation of pregnancy | CPT/HCPCS: 99212 ==

== ENCOUNTER 2022-04-03 08:56 | Outpatient (REF) | payer MEDICAID, SELFPAY ==
[2022-04-03 10:56] LABS: Hematocrit 33.3 % (37.0-47.0); Mean Corpuscular Hemoglobin 25.2 pg (27.0-33.0); Mean Corpuscular Volume 76.4 fL (80.0-98.0); Mean Platelet Volume 10.4 fL (9.4-12.3); Platelet Count 188 X10*3/uL (160-400); Red Blood Count 4.36 X10*6/uL (4.20-5.50); White Blood Count 10.4 X10*3/uL (4.8-10.8)
[2022-04-03 11:46] LABS: Glucose 1 Hour PP 50gm Dose 164 mg/dL (60-140)
[2022-04-04 05:51] LABS: Syphilis Screen Nonreactive (Nonreactive)
== END 2022-04-03 08:57 | disposition home or self-care (01) ==
LOC: HO.LAB 08:56
PROVIDERS: Visit Provider Obstetrics & Gynecology
DX: Z34.90 Encounter for supervision of normal pregnancy, unspecified, unspecified trimester (principal)
CPT/HCPCS: 36415; 82950; 85027; 86780

== ENCOUNTER 2022-04-10 09:06 | Outpatient (REF) | payer MEDICAID, SELFPAY ==
[2022-04-10 11:48] LABS: Glucose 1 Hour PP 50gm Dose 177 mg/dL (60-140)
== END 2022-04-10 09:07 | disposition home or self-care (01) ==
LOC: HO.LAB 09:06
PROVIDERS: Advanced Practice Midwife; Visit Provider Obstetrics & Gynecology
DX: O99.810 Abnormal glucose complicating pregnancy (principal)
CPT/HCPCS: 36415; 82950

== ENCOUNTER 2022-04-18 12:08 | Emergency (ER) | payer MEDICAID, SELFPAY ==
[2022-04-18 12:15] VITALS: BP 135/57; PULSE 98; RESP 18; TEMP 36.1; O2SAT 98; BMI 43.5
[2022-04-18 12:33] LABS: MANUAL DIFF FLAG NO
[2022-04-18 12:36] LABS: Basophils Percent Auto 0.2 % (0-2); Eosinophils Absolute Auto 0.3 X10*3/uL (0.0-0.4); Eosinophils Percent Auto 2.3 % (0-4); Hemoglobin 10.9 g/dl (12.0-16.0); Imm Gran Pct Auto 1.4 % (0.0-0.4); Lymphocytes Absolute Auto 1.7 X10*3/uL (1.2-4.9); Lymphocytes Percent Auto 11.6 % (20-40); Mean Corpuscular HGB Conc 34.1 g/dl (31.0-35.0); Mean Corpuscular Hemoglobin 25.5 pg (27.0-33.0); Mean Corpuscular Volume 74.8 fL (80.0-98.0); Monocytes Absolute Auto 0.9 X10*3/uL (0.1-1.2); Neutrophils Absolute Auto 11.2 x10*3/uL (2.0-8.3); Neutrophils Percent Auto 78.5 % (45-73); Platelet Count 226 X10*3/uL (160-400); Red Blood Count 4.28 X10*6/uL (4.20-5.50); Red Cell Distribution Width 16.6 % (11.0-16.0); White Blood Count 14.3 X10*3/uL (4.8-10.8)
[2022-04-18 12:36] LABS: Appearance Urine Clear; Color Urine Yellow; Glucose Urine UA Negative (Negative); Leukocyte Esterase Urine Large (3+) (Negative); Nitrite Urine Negative (Negative); Specific Gravity - Urine 1.015 (1.005-1.025); UMIC TRIGGER UACC YES; Urine Blood Negative (Negative); Urine Ketones Negative (Negative); Urine Protein Negative (Neg-Trace)
[2022-04-18 12:38] LABS: Bacteria Urine Trace (None Seen); Hyaline Casts Urine 0-2 /LPF (0-2); RBC Urine 0-2 /HPF (0-2); UACC Culture Trigger YES; WBC Urine 21-50 /HPF (0-5)
[2022-04-18 13:04] LABS: Alanine Aminotransferase 11 U/L (0-31); Albumin Level 3.2 g/dL (3.5-5.0); Alkaline Phosphatase 132 U/L (39-117); Anion Gap 15 (12-20); Aspartate Amino Transferase 16 U/L (5-31); Bilirubin Direct < 0.2 mg/dL (0.0-0.5); Bilirubin Total 0.2 mg/dL (0.0-1.0); Blood Urea Nitrogen 4 mg/dL (9-16); Calcium 8.6 mg/dL (8.4-10.2); Carbon Dioxide 21 mmol/L (22-29); Chloride 107 mmol/L (96-108); Creatinine Clr Calc Pharmacy 177.6; Estimated Glomerular Filt Rate > 60; Glucose Random 123 mg/dL (60-115); Potassium 3.5 mmol/L (3.3-5.1); Sodium 139 mmol/L (135-145)
--- OUTSIDE RECORDS SUMMARY | 2022-04-18 13:57 | XMS_ITS | Continuity of Care Document ---
:1995 Author Organization [facility] Address [address] [place] [id number]- Care Team Providers Name Role Phone Cristo JAMES, Dilan Austin Primary Care Physician Encounter [facility] Date(s): 03/29/22 - 04/05/[address] [address]- Encounter Diagnosis Other specified related conditions, third trimester (Final) - Discharge Disposition: A-D/C Home Attending Physician: Brittany Myers MD Admitting Physician: Louis JAMES, Brittany Landry Allergies, Adverse Reactions, Alerts No Known Allergies Medications Multivitamins By Mouth, Daily, 0 Refills, Maintenance, 03/29/22 19:43:00 EDT, Partial fill upon patient request ifthe prescription is for a schedule II opioid drug. Start Date: 03/29/22 Status: Ordered Problem List Condition Confirmation Course Effective Dates Status Health Stat us Informant Asthma Confirmed Active Chlamydia Confirmed 2020 Active Chlamydia Confirmed 2021 Active COVID-19 Confirmed 06/2021 Active Procedures Procedure Date Related Diagnosis Body Site Status Dilation and curettage Compl eted [place] tooth Completed Vital Signs Most recent to oldest [Reference Range]: 1 2 Height 158 cm (03/29/22 7:51 PM) Weight 104.1 kg (03/29/22 5:07 PM) Oxygen Saturation [94-100 %] 99 % (03/29/22 5:07 PM) Pulse Rate [55-90 bpm] 109 bpm *H* (03/29/22 5:07 PM) Blood Pressure [90-138/55-84 mm Hg] 114/62 mm Hg 135/ 58 mm Hg (03/29/22 7:51 PM) (03/29/22 5:07 PM) Respiratory Rate [16-30 br/min] 18 br/min 17 br/mi n (03/29/22 7:51 PM) (03/29/22 5:07 PM) Temperature [96.8-100.4 DegF] 97.9 DegF (03/29/22 5:07 PM) Mode of Delivery (Oxygen) Room air (03/29/22 7:51 PM) Blood pressure sites Arm, right Arm, right (03/29/22 7:51 PM) (03/29/22 5:07 PM) Temperature Route Oral (03/29/22 5:07 PM) Weight Obtained Via Standing scale (03/29/22 5:07 PM) Social History Social History Type Response Smoking Status Never (less than 100 in life time) entered on: 03/29/22 Sex Patient Care team information PersonnelName: Cristo JAMES, Dilan Austin Address: Address: [address] [place] [id number]
--- NOTE | 2022-04-18 14:05 | ED.ABDPAIN ---
HPI - Abdominal Pain General Chief Complaint: Abdominal Pain Stated Complaint: Abd pain/Diarrhea 31 wks preg Time Seen by Provider: 04/18/22 13:51 Source: patient Mode of arrival: ambulatory Limitations: no limitations History of Present Illness HPI narrative: Patient is a 27-year-old female 31+5 presenting with epigastric abdominal pain for the past 2 days. The pain improves when the patient is laying on her right side. The patient also reports associated nausea, diarrhea, dizziness, decreased activity, and suprapubic pain. Patient reports she ate Icelandic food about 2 days ago and her symptoms started, stating it feels like food poisoning/GERD. Patient denies fever, chills, vaginal discharge, vaginal bleeding, vision changes, or difficulty breathing. Patient states that she has had decreased food intake, stating every time she has tried to eat something she has thrown up. She does report adequate hydration. When asked about activity she reports three kicks per hour in the last 2 days. MD elicited complaint: abdominal pain (Epigastric) Onset (ago): day(s) (2) Pain Consistency: constant Location: epigastric and suprapubic Severity: moderate Quality: sharp Radiation: none Relieving factors: other (Laying on side) Context: possible food poisoning Associated symptoms: nausea, vomiting and diarrhea Related Data Previous Rx's Medication Instructions Recorded vitamin with calcium 1 tab PO DAILY #30 tabs 10/17/21 no.72-iron 27 mg-folic acid 1 mg tablet ( Vitamins Plus Low Iron) aspirin 81 mg tablet,delayed 162 mg PO DAILY #300 tabs 02/02/22 release (Adult Aspirin Regimen) clotrimazole-betamethasone 1 1 appl topical BID 5 days #45 grams 02/23/22 %-0.05 % topical cream terconazole 0.4 % vaginal cream 1 appful vaginal BEDTIME 7 days 02/23/22 #45 grams ferrous sulfate 325 mg (65 mg 325 mg PO DAILY 30 days #30 tabs 04/03/22 iron) tablet,delayed release Allergies Allergy/AdvReac Type Severity Reaction Status Date / Time No Known Allergies Allergy Verified 03/29/22 14:28 [No Known Allergies*] dogs/cats Allergy Unknown Watery Eye Uncoded 03/29/22 14:28 latex Allergy Unknown rash Uncoded 03/29/22 14:28 Review of Systems Review of Systems Constitutional: No Fever, No Chills ENT/Mouth: No sore throat, No Rhinorrhea, No Swallowing Difficulty Eyes: No Eye Pain, No Swelling, No Redness Cardiovascular: No Chest Pain, No SOB, No Orthopnea, No Edema Respiratory: No Cough, No Sputum, No Wheezing, No dyspnea Gastrointestinal: + Nausea, + Vomiting, + Diarrhea, No abdominal Pain, No Hematochezia, No Melena Genitourinary: No Dysuria, No Urinary Frequency, No Hematuria, + suprapubic pain Musculoskeletal: No joint pain, No Myalgias Skin: No Skin Lesions, No rash Neuro: + Weakness, No Numbness, + Dizziness, No Headache Yes all other systems are reviewed and are negative [facility] Past Medical History Medical History (Updated 04/18/22 @ 14:54 by RUBEN Villeda) Abnormal glucose affecting History of spontaneous Hx of ectopic Family History Family History Mother HTN (hypertension) Sickle cell trait Sister No problems noted. Social History Social History Household Members: Children Housing: Apartment Are you a primary customer care representative to a significant other at home: No Do you presently have visiting nurse or other home services: No Alcohol intake: never Patient Tobacco Use Status: Never used Tobacco Trauma History: none voiced Special anastasia needs: No Agree to transfusion: Yes Advance Directives: No Advance Directives Information Provided: No Sexual orientation: Straight/Heterosexual Gender identity: Female Physical Exam ED Vital Signs: Vital Signs - 24 hr 04/18/22 12:15 Temperature 96.9 F Pulse Rate 98 Respiratory Rate 18 Blood Pressure 135/57 L Pulse Oximetry 98 Oxygen Delivery Method Room Air BMI result Body Mass Index 43.5 Appearance: Alert. Oriented X3. No acute distress. Eyes: Pupils equal, round and reactive to light. ENT: Pharynx normal. Neck: Normal inspection. Neck supple. CVS: Normal heart rate and rhythm. Pulses normal. Respiratory: No respiratory distress. Breath sounds normal. Abdomen: Nontender epigastric area and RUQ. : Uterus palpated and is subxihoid. FHT: 152. movement observed Skin: Skin warm and dry. Normal skin color. Normal skin turgor. No rashes. Extremities: No lower extremity edema. Neuro: Oriented X 3. No motor deficit. No sensory deficit. Course Course Course Narrative: 27-year-old female 31+5 presenting with epigastric abdominal pain for the past 2 days, with associated nausea, diarrhea, dizziness, decreased activity, and supra-pubic pain. Patient reports these symtoms started after she ate chineese food. Physical Exam: FHT: 152; patient reports 3 movements/kicks per hour in the past two days. Exam otherwise unremarkable. UA: Indicates an infection. Dr. Granda from [facility] here has been contacted who is recommending transfer to [facility] now. Plan: - Treat UTI with antibiotics - 1 g IV Rocephin ordered. - probable dehydration, start IVF - Transport to [facility] L&D for observation and further management Reevaluation(s) Reevaluation #1: spoke with Dr. Lamas from OB at [facility] who accepts the patient - awaiting bed on LDR. Will provide IVF and IV abx in the meantime. COVID negative. Reevaluation #2: Patient has a bed on W1 - BLS to transport now. Rocephin complete. MDM - Abdominal Pain Lab Data Result diagrams: 04/18/22 12:29 04/18/22 12:29 Labs: Lab Results 04/18/22 04/18/22 04/18/22 Range/Units 12:25 12:29 12:29 WBC 14.3 H (4.8-10.8) X10*3/uL RBC 4.28 (4.20-5.50) X10*6/uL Hgb 10.9 L (12.0-16.0) g/dl Hct 32.0 L (37.0-47.0) % MCV 74.8 L (80.0-98.0) fL MCH 25.5 L (27.0-33.0) pg MCHC 34.1 (31.0-35.0) g/dl RDW 16.6 H (11.0-16.0) % Plt Count 226 (160-400) X10*3/uL MPV 10.0 (9.4-12.3) fL Immature Gran % (Auto) 1.4 H (0.0-0.4) % Neut % (Auto) 78.5 H (45-73) % Lymph % (Auto) 11.6 L (20-40) % [place] % (Auto) 6.0 (2-11) % Eos % (Auto) 2.3 (0-4) % Baso % (Auto) 0.2 (0-2) % Lymph # (Auto) 1.7 (1.2-4.9) X10*3/uL [place] # (Auto) 0.9 (0.1-1.2) X10*3/uL Eos # (Auto) 0.3 (0.0-0.4) X10*3/uL Baso # (Auto) 0.0 (0.0-0.2) X10*3/uL Abs Immat Gran (auto) 0.20 H (0.00-0.03) X10*3/uL Absolute Neuts (auto) 11.2 H (2.0-8.3) x10*3/uL Absolute Nucleated RBC 0.000 (0.0-0.012) X10*3/uL Nucleated RBC % (auto) 0.0 (0.0-0.2) /100WBC Sodium 139 (135-145) mmol/L Potassium 3.5 (3.3-5.1) mmol/L Chloride 107 (96-108) mmol/L Carbon Dioxide 21 L (22-29) mmol/L Anion Gap 15 (12-20) BUN 4 L (9-16) mg/dL Creatinine 0.56 (0.5-1.4) mg/dL Estim Creat Clear Calc 177.6 Estimated GFR > 60 Random Glucose 123 H (60-115) mg/dL Calcium 8.6 (8.4-10.2) mg/dL Total Bilirubin 0.2 (0.0-1.0) mg/dL Direct Bilirubin < 0.2 (0.0-0.5) mg/dL AST 16 (5-31) U/L ALT 11 (0-31) U/L Alkaline Phosphatase 132 H D (39-117) U/L Total Protein 6.0 L (6.5-8.0) g/dL Albumin 3.2 L (3.5-5.0) g/dL Urine Color Yellow Urine Appearance Clear Urine pH 6.0 (5.0-9.0) Ur Specific [place] 1.015 (1.005-1.025) Urine Protein Negative (Neg-Trace) mg/dL Urine Glucose (UA) Negative (Negative) mg/dL Urine Ketones Negative (Negative) mg/dL Urine Blood Negative (Negative) Urine Nitrite Negative (Negative) Ur Leukocyte Esterase Large (3+) H (Negative) Urine RBC 0-2 (0-2) /HPF Urine WBC 21-50 H (0-5) /HPF Ur Squamous Epith Cells 3-5 (0-2) /HPF Urine Bacteria Trace (None Seen) Hyaline Casts 0-2 (0-2) /LPF COVID-19 (ALYSHA) (Negative) COVID-19 Clin Com 04/18/22 Range/Units 14:09 WBC (4.8-10.8) X10*3/uL RBC (4.20-5.50) X10*6/uL Hgb (12.0-16.0) g/dl Hct (37.0-47.0) % MCV (80.0-98.0) fL MCH (27.0-33.0) pg MCHC (31.0-35.0) g/dl RDW (11.0-16.0) % Plt Count (160-400) X10*3/uL MPV (9.4-12.3) fL Immature Gran % (Auto) (0.0-0.4) % Neut % (Auto) (45-73) % Lymph % (Auto) (20-40) % Treg[place] % (Auto) (2-11) % Eos % (Auto) (0-4) % Baso % (Auto) (0-2) % Lymph # (Auto) (1.2-4.9) X10*3/uL [place] # (Auto) (0.1-1.2) X10*3/uL Eos # (Auto) (0.0-0.4) X10*3/uL Baso # (Auto) (0.0-0.2) X10*3/uL Abs Immat Gran (auto) (0.00-0.03) X10*3/uL Absolute Neuts (auto) (2.0-8.3) x10*3/uL Absolute Nucleated RBC (0.0-0.012) X10*3/uL Nucleated RBC % (auto) (0.0-0.2) /100WBC Sodium (135-145) mmol/L Potassium (3.3-5.1) mmol/L Chloride (96-108) mmol/L Carbon Dioxide (22-29) mmol/L Anion Gap (12-20) BUN (9-16) mg/dL Creatinine (0.5-1.4) mg/dL Estim Creat Clear Calc Estimated GFR Random Glucose (60-115) mg/dL Calcium (8.4-10.2) mg/dL Total Bilirubin (0.0-1.0) mg/dL Direct Bilirubin (0.0-0.5) mg/dL AST (5-31) U/L ALT (0-31) U/L Alkaline Phosphatase (39-117) U/L Total Protein (6.5-8.0) g/dL Albumin (3.5-5.0) g/dL Urine Color Urine Appearance Urine pH (5.0-9.0) Ur Specific [place] (1.005-1.025) Urine Protein (Neg-Trace) mg/dL Urine Glucose (UA) (Negative) mg/dL Urine Ketones (Negative) mg/dL Urine Blood (Negative) Urine Nitrite (Negative) Ur Leukocyte Esterase (Negative) Urine RBC (0-2) /HPF Urine WBC (0-5) /HPF Ur Squamous Epith Cells (0-2) /HPF Urine Bacteria (None Seen) Hyaline Casts (0-2) /LPF COVID-19 (ALYSHA) Negative (Negative) COVID-19 Clin Com See Note Critical Care Time Critical Care Time Critical Care Time: Yes Total Critical Care Time: 35 Attestation: I have personally provided critical care time exclusive of time spent on separately billable procedures. Time includes review of lab data, frequent bedside reassessments, discussion with consultants, and monitoring for potential decompensation. Intervention performed as documented. Discharge Plan Discharge Clinical Impression: Acute UTI, Decreased movement, Dehydration [facility] Prescriptions: No Action clotrimazole-betamethasone 1-0.05 % cream 1 appl topical BID 5 Days Qty: 45 0RF terconazole 0.4 % cream 1 appful vaginal BEDTIME 7 Days Qty: 45 0RF ferrous sulfate 325 mg (65 mg iron) tablet,delayed release (DR/EC) 325 mg PO DAILY 30 Days Qty: 30 1RF Vitamin Plus Low Iron 27 mg iron- 1 mg tablet 1 tab PO DAILY Qty: 30 11RF aspirin [Adult Aspirin Regimen] 81 mg tablet,delayed release (DR/EC) 162 mg PO DAILY Qty: 300 1RF
[2022-04-18] MEDS: 0.9 % Sodium Chloride 1,000 ML 999 ML IVCONT (14:25)
[2022-04-18 14:41] LABS: COVID-19 Test Negative (Negative); IDNOW Serial# 9DB6401D
--- NOTE | 2022-04-18 15:11 | PC.NURSE ---
was approached by the provider asking to transfer the pt to [facility]. A call was placed to [facility] transfer Aneta. [facility] stated they will call back with bed placement time of call 1411 and EMS is on standby for the [place] for [facility]. A call was placed to [facility] to find if the bed was assigned at 1511 there is no bed placement at this time
[2022-04-18] MEDS: cefTRIAXone sodium 1 GM in 0.9 % Sodium Chloride 50 ML IV (15:14)
[2022-04-18 16:01] VITALS: BP 111/65; PULSE 97; RESP 18; TEMP 36.4; O2SAT 100
== END 2022-04-18 16:21 | disposition short-term general hospital (02) ==
PROVIDERS: Physician Assistant; Emergency Provider Emergency Medicine
DX: O26.93 Pregnancy related conditions, unspecified, third trimester (principal); Z3A.31 31 weeks gestation of pregnancy; R10.13 Epigastric pain; Z79.899 Other long term (current) drug therapy; Z20.822 Contact with and (suspected) exposure to COVID-19
CPT/HCPCS: 36415; 80048; 80076; 81001; 85025; 87086; 87635; 96361; 96374; 99285; J0696

== ENCOUNTER → 2022-04-24 13:39 | Outpatient (BNVA) | payer MEDICAID, SELFPAY | PROVIDERS: Visit Provider Advanced Practice Midwife | DX: O99.810 Abnormal glucose complicating pregnancy (principal); O99.891 Other specified diseases and conditions complicating pregnancy; Z86.59 Personal history of other mental and behavioral disorders; O26.23 Pregnancy care for patient with recurrent pregnancy loss, third trimester; Z3A.32 32 weeks gestation of pregnancy | CPT/HCPCS: 99212 ==

== ENCOUNTER 2022-04-25 09:35 | Outpatient (REF) | payer MEDICAID, SELFPAY ==
[2022-04-25 11:25] LABS: Glucose Fasting 97 mg/dL (60-99)
[2022-04-25 12:21] LABS: Glucose 1 Hour 168 mg/dL
[2022-04-25 13:01] LABS: Glucose 2 Hour 157 mg/dL
[2022-04-25 13:50] LABS: Glucose 3 Hour 134 mg/dL
== END 2022-04-25 09:36 | disposition home or self-care (01) ==
LOC: HO.LAB 09:35
PROVIDERS: PCP Registered Nurse; Visit Provider Advanced Practice Midwife
DX: O99.810 Abnormal glucose complicating pregnancy (principal)
CPT/HCPCS: 36415; 82951

== ENCOUNTER → 2022-04-27 14:11 | Outpatient (BNVA) | payer MEDICAID, SELFPAY | PROVIDERS: PCP Registered Nurse; Visit Provider Advanced Practice Midwife | DX: Z71.89 Other specified counseling (principal); O24.419 Gestational diabetes mellitus in pregnancy, unspecified control; Z3A.33 33 weeks gestation of pregnancy | CPT/HCPCS: 99211 ==

== ENCOUNTER 2022-05-04 08:05 | Outpatient (REF) | payer MEDICAID, SELFPAY ==
--- NOTE | ~2022-05-04 | US_ITS ---
EXAMINATION: US OBSTETRICAL (BIOPHYSICAL PROFILE) CLINICAL INFORMATION: Gestational diabetes mellitus COMPARISON: January 26, 2022 and December 08, 2021 TECHNIQUE: Ultrasound of the pelvis is performed. Biophysical profile is performed over 30 minutes with assessment of breathing, gross body movement, tone, and qualitative amniotic fluid volume. Each matrix is scored 0 or 2, depending if the metric is present. Maximum total score possible is 8. Examination is not intended to assess for anomalies. FINDINGS: POSITION: Cephalic PLACENTA: Posterior location AMNIOTIC FLUID INDEX: 14.8 cm CARDIAC ACTIVITY: 144 beats per minute BIOPHYSICAL PROFILE: Motion: 2 Tone: 2 Breathin Amniotic Fluid: 2 Total score: 8 US/US OB biophysical profile IMPRESSION: 1. Single intrauterine gestation in cephalic position with posterior placenta. 2. Total biophysical score is 8 (scale 0-8). 3. Amniotic fluid index 14.8 cm. 4. cardiac activity 144 beats per minute.
== END 2022-05-04 08:06 | disposition home or self-care (01) ==
LOC: HO.US 08:05
PROVIDERS: PCP Registered Nurse; Visit Provider Obstetrics & Gynecology
DX: O24.419 Gestational diabetes mellitus in pregnancy, unspecified control (principal); Z3A.33 33 weeks gestation of pregnancy
CPT/HCPCS: 59025; 76819

== ENCOUNTER → 2022-05-07 15:04 | Outpatient (BNVA) | payer MEDICAID, SELFPAY | PROVIDERS: PCP Registered Nurse; Visit Provider Advanced Practice Midwife | DX: O24.415 Gestational diabetes mellitus in pregnancy, controlled by oral hypoglycemic drugs (principal); O28.8 Other abnormal findings on antenatal screening of mother; Z3A.34 34 weeks gestation of pregnancy; Z79.84 Long term (current) use of oral hypoglycemic drugs | CPT/HCPCS: 59025; 99212 ==

== ENCOUNTER → 2022-05-08 14:25 | Outpatient (BNVA) | payer MEDICAID, SELFPAY | PROVIDERS: PCP Registered Nurse; Visit Provider Obstetrics & Gynecology | DX: O24.419 Gestational diabetes mellitus in pregnancy, unspecified control (principal); Z79.84 Long term (current) use of oral hypoglycemic drugs; Z3A.34 34 weeks gestation of pregnancy | CPT/HCPCS: 99212 ==

== ENCOUNTER 2022-07-26 10:15 | Outpatient (REF) | payer MEDICAID, SELFPAY | END 2022-07-26 10:16 | disposition home or self-care (01) | LOC: HO.LNP 10:15 | PROVIDERS: PCP Registered Nurse; Visit Provider Obstetrics & Gynecology | DX: R87.610 Atypical squamous cells of undetermined significance on cytologic smear of cervix (ASC-US) (principal); R87.810 Cervical high risk human papillomavirus (HPV) DNA test positive | CPT/HCPCS: 57454; 88305 ==

== ENCOUNTER → 2022-08-30 09:25 | Outpatient (BNVA) | payer MEDICAID, SELFPAY | PROVIDERS: PCP Registered Nurse; Visit Provider Obstetrics & Gynecology | DX: R87.610 Atypical squamous cells of undetermined significance on cytologic smear of cervix (ASC-US) (principal); R87.810 Cervical high risk human papillomavirus (HPV) DNA test positive | CPT/HCPCS: 99212 ==

== ENCOUNTER → 2022-09-12 14:51 | Outpatient (BNVA) | payer SELFPAY | PROVIDERS: PCP Registered Nurse; Visit Provider Physician Assistant | DX: Z02.1 Encounter for pre-employment examination (principal); R76.11 Nonspecific reaction to tuberculin skin test without active tuberculosis ==

== ENCOUNTER 2023-05-09 11:43 | Outpatient (REF) | payer MEDICAID, SELFPAY ==
[2023-05-09 13:24] LABS: Hematocrit 34.6 % (37.0-47.0); Hemoglobin 11.1 g/dl (12.0-16.0); Mean Corpuscular HGB Conc 32.1 g/dl (31.0-35.0); Mean Corpuscular Hemoglobin 24.1 pg (27.0-33.0); Mean Corpuscular Volume 75.2 fL (80.0-98.0); Mean Platelet Volume 11.4 fL (9.4-12.3); Platelet Count 356 X10*3/uL (160-400); Red Cell Distribution Width 15.9 % (11.0-16.0); White Blood Count 6.2 X10*3/uL (4.8-10.8)
[2023-05-09 13:26] LABS: Estimated Average Glucose 103 mg/dL; Hemoglobin A1c % 5.2 % (<6.0)
[2023-05-09 13:46] LABS: Alanine Aminotransferase 15 U/L (0-31); Albumin Level 4.3 g/dL (3.5-5.0); Alkaline Phosphatase 73 U/L (39-117); Anion Gap 9 (12-20); Aspartate Amino Transferase 19 U/L (5-31); Bilirubin Total 0.5 mg/dL (0.0-1.0); Blood Urea Nitrogen 7 mg/dL (9-16); Calcium 9.2 mg/dL (8.4-10.2); Carbon Dioxide 27 mmol/L (22-29); Chloride 110 mmol/L (96-108); Cholesterol 168 mg/dL (<200); Estimated Glomerular Filt Rate > 60; Glucose Random 84 mg/dL (60-115); HDL Cholesterol 45 mg/dL (>40); LDL Cholesterol Calculated 106 mg/dL (<100); Potassium 3.6 mmol/L (3.3-5.1); Sodium 142 mmol/L (135-145); Total Protein 7.7 g/dL (6.5-8.0); Triglycerides 86 mg/dL (<150)
[2023-05-09 13:52] LABS: TSH reflex Free T4 0.43 uIU/mL (0.32-4.0)
[2023-05-09 18:44] LABS: CT PCR NOT DETECTED (Not Detect.); NG PCR NOT DETECTED (Not Detect.)
[2023-05-10 15:00] LABS: Iron 32 mcg/dL (30-160); Percent Iron Saturation 10 % (15-50); Total Iron Binding Capacity 325 mcg/dL (228-428); Unsaturated Iron Binding 293 ug/dL
[2023-05-10 15:20] LABS: Ferritin 8 ng/mL (10-122)
[2023-05-13 04:03] LABS: Syphilis Screen Nonreactive (Nonreactive)
[2023-05-13 04:15] LABS: HBsAGNum1 0.34 S/CO (0.00-0.99); Hepatitis B Surface Antigen Negative (Negative)
[2023-05-13 04:55] LABS: HBS Num1 6.92 mIU/mL (0-7.99); HBc Num1 0.07 S/CO (0.00-0.79); HIV AB/AG Nonreactive (Nonreactive); HIV Num 1 0.09 S/CO (0.00-0.99); Hepatitis B Core Antibody Nonreactive (Nonreactive); ~HepC Num1 0.09 S/CO (0.00-0.79); ~Hepatitis B Surface Antibody NONREACTIVE (Nonreactive); ~Hepatitis C Antibody Nonreactive (Nonreactive)
== END 2023-05-09 11:44 | disposition home or self-care (01) ==
LOC: HO.HHCL 11:43
PROVIDERS: Visit Provider Student in an Organized Health Care Education/Training Program
DX: Z00.00 Encounter for general adult medical examination without abnormal findings (principal); Z13.0 Encounter for screening for diseases of the blood and blood-forming organs and certain disorders involving the immune mechanism; Z11.4 Encounter for screening for human immunodeficiency virus [HIV]; Z20.2 Contact with and (suspected) exposure to infections with a predominantly sexual mode of transmission; Z13.220 Encounter for screening for lipoid disorders; Z13.1 Encounter for screening for diabetes mellitus; Z13.29 Encounter for screening for other suspected endocrine disorder
CPT/HCPCS: 0353U; 36415; 80053; 80061; 82728; 83036; 83540; 84443; 85027; 86704; 86706; 86780; 86803; 87340; 87389

== ENCOUNTER 2023-07-09 10:09 | Outpatient (REF) | payer MEDICAID, SELFPAY ==
[2023-07-09 13:10] LABS: HCG Quantitative 17753 mIU/mL
== END 2023-07-09 10:10 | disposition home or self-care (01) ==
LOC: HO.HHCL 10:09
PROVIDERS: Visit Provider Student in an Organized Health Care Education/Training Program
DX: Z32.01 Encounter for pregnancy test, result positive (principal)
CPT/HCPCS: 36415; 84702

== ENCOUNTER 2023-09-04 10:01 | Outpatient (AMB) | payer MEDICAID, SELFPAY ==
--- NOTE | 2023-09-04 10:17 | MHC.OFFVIS ---
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 No complaints. Last Pap was in 11/24 was ascus/HPV positive, followed by colpo/biopsy/ECC done in 07/30 which were negative [facility] Medical History (Updated 09/04/23 @ 10:26 by Socorro Haines CMA) Abnormal glucose affecting Hx of ectopic History of spontaneous Surgical History (Updated 09/04/23 @ 10:28 by Socorro Haines CMA) Hx of dilation and curettage Family History (Updated 09/04/23 @ 10:26 by Socorro Haines CMA) Mother HTN (hypertension) Sickle cell trait Sister No problems noted. 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 Sexually active: No Sexual orientation: Straight/Heterosexual Gender identity: Female Female Reproductive History Menstrual Age of Menarche: 13 Total pregnancies: 6 Full term: 3 Number of Living Children: 3 Ab induced: 1 Ab spontaneous: 1 Ectopics: 1 Date of last pap smear: 12/01/21 History of abnormal pap smear: Yes (HPV +) Review of Systems Const All systems reviewed & are unremarkable except as noted in HPI and below Card Reports as per HPI Resp Reports as per HPI GI Reports as per HPI and Reports no additional complaints Reports as per HPI Physical Exam Vital Signs: Last Vital Signs BP 108/66 09/04/23 10:21 BMI result Body Mass Index 32.9 Const General: cooperative, healthy appearing and comfortable Chest Chest palpation & inspection: normal inspection of the chest and normal palpation of entire chest wall Breast/axilla inspection: normal inspection of the breasts and normal inspection of the axillae Breast/axilla palpation: normal palpation of the breasts, normal palpation of the axillae and no axillary lymphadenopathy Resp Effort & Inspection: normal respiratory effort Auscultation: clear to auscultation bilaterally Percussion: percussion normal Cardio Palpation: normal PMI Rate: regular rate Rhythm: regular rhythm Heart sounds: no murmurs and no rubs Peripheral pulses: Peripheral pulses 2+ throughout GI Inspection: Yes normal to inspection Palpation (GI): Soft to palpation, nontender, no guarding, not rigid and No hepatosplenomegaly present Percussion: Yes normal to percussion Auscultation: normal bowel sounds Rectal Exam - Female: deferred General: Yes bladder normal to palpation External Female Exam: No lesion Speculum Exam - Vagina: normal appearance of the vagina, normal palpation, normal vaginal discharge and not erythematous Speculum Exam - Cervix: normal appearance of the cervix and normal palpation Bimanual exam- vagina & uterus: normal bimanual exam, normal palpation, uterine size normal, bladder normal to palpation, consistency normal and normal palpation Bimanual Exam- Adnexa, other: normal adnexae, no masses and no tenderness Assessment & Plan Assessment & Plan (1) Well woman exam: Code(s): Z01.419 - Encounter for gynecological examination (general) (routine) without abnormal findings Plan: Pap smear taken. Counseled the patient about the recommended dietary allowance of 1000 mg of Calcium & 600 IU of vitamin D. The patient was instructed to perform monthly self-breast exams , to call for any changes in menstrual patterns and to schedule an annual exam in a year; all questions answered and the patient verbalized understanding. Coding Level of Care Code New Pt Prev Care 18-39yr(30624 Diagnoses Well woman exam Z01.419
[2023-09-04 10:21] VITALS: BP 108/66; BMI 32.9
== END 2023-09-04 10:43 | disposition home or self-care (01) ==
LOC: HO.HWS 10:01
PROVIDERS: PCP Registered Nurse; Visit Provider Obstetrics & Gynecology
DX: Z01.419 Encounter for gynecological examination (general) (routine) without abnormal findings (principal)
CPT/HCPCS: 99395

== ENCOUNTER 2023-09-04 10:01 | Outpatient (REF) | payer MEDICAID, SELFPAY | END 2023-09-04 10:02 | disposition home or self-care (01) | LOC: HO.LNP 10:01 | PROVIDERS: PCP Registered Nurse; Visit Provider Obstetrics & Gynecology | DX: Z01.419 Encounter for gynecological examination (general) (routine) without abnormal findings (principal); R87.610 Atypical squamous cells of undetermined significance on cytologic smear of cervix (ASC-US); R87.810 Cervical high risk human papillomavirus (HPV) DNA test positive | CPT/HCPCS: 88142; 99395 ==

== ENCOUNTER → 2023-11-12 14:16 | Outpatient (BNVA) | payer SELFPAY | PROVIDERS: PCP Registered Nurse | DX: Z11.1 Encounter for screening for respiratory tuberculosis (principal) ==

== ENCOUNTER 2023-12-04 11:56 | Outpatient (REF) | payer MEDICAID, SELFPAY ==
[2023-12-04 13:19] LABS: MANUAL DIFF FLAG NO
[2023-12-04 13:33] LABS: Basophils Absolute Auto 0.1 X10*3/uL (0.0-0.2); Basophils Percent Auto 0.7 % (0-2); Eosinophils Absolute Auto 0.5 X10*3/uL (0.0-0.4); Eosinophils Percent Auto 5.2 % (0-4); Hematocrit 36.6 % (37.0-47.0); Hemoglobin 11.7 g/dl (12.0-16.0); Imm Gran Abs Auto 0.01 X10*3/uL (0.00-0.03); Imm Gran Pct Auto 0.1 % (0.0-0.4); Lymphocytes Absolute Auto 2.1 X10*3/uL (1.2-4.9); Mean Corpuscular Hemoglobin 23.4 pg (27.0-33.0); Mean Corpuscular Volume 73.3 fL (80.0-98.0); Mean Platelet Volume 10.2 fL (9.4-12.3); Monocytes Absolute Auto 0.6 X10*3/uL (0.1-1.2); Monocytes Percent Auto 6.7 % (2-11); Neutrophils Absolute Auto 5.5 x10*3/uL (2.0-8.3); Neutrophils Percent Auto 63.3 % (45-73); Platelet Count 329 X10*3/uL (160-400); Red Blood Count 4.99 X10*6/uL (4.20-5.50); Red Cell Distribution Width 16.8 % (11.0-16.0); White Blood Count 8.6 X10*3/uL (4.8-10.8)
[2023-12-04 13:56] LABS: Alanine Aminotransferase 12 U/L (0-31); Albumin Level 4.2 g/dL (3.5-5.0); Alkaline Phosphatase 69 U/L (39-117); Anion Gap 10 (12-20); Aspartate Amino Transferase 16 U/L (5-31); Bilirubin Total 0.6 mg/dL (0.0-1.0); Blood Urea Nitrogen 6 mg/dL (9-16); Carbon Dioxide 26 mmol/L (22-29); Chloride 109 mmol/L (96-108); Estimated Glomerular Filt Rate > 60; Glucose Random 88 mg/dL (60-115); Iron 31 mcg/dL (30-160); Percent Iron Saturation 10 % (15-50); Potassium 4.1 mmol/L (3.3-5.1); Sodium 141 mmol/L (135-145); Total Iron Binding Capacity 325 mcg/dL (228-428); Total Protein 7.4 g/dL (6.5-8.0); Unsaturated Iron Binding 294 ug/dL
[2023-12-04 14:10] LABS: Ferritin 12 ng/mL (10-122)
== END 2023-12-04 11:57 | disposition home or self-care (01) ==
LOC: HO.HHCL 11:56
PROVIDERS: Visit Provider Student in an Organized Health Care Education/Training Program
DX: D50.9 Iron deficiency anemia, unspecified (principal)
CPT/HCPCS: 36415; 80053; 82728; 83540; 85025

== ENCOUNTER 2023-12-05 09:56 | Outpatient (REF) | payer MEDICAID, SELFPAY ==
[2023-12-05 12:00] LABS: Cholesterol 163 mg/dL (<200); HDL Cholesterol 63 mg/dL (>40); LDL Cholesterol Calculated 88 mg/dL (<100); Magnesium 1.9 mg/dL (1.6-2.6); Triglycerides 60 mg/dL (<150)
[2023-12-10 17:04] LABS: Prot Elec - Albumin 4.1 g/dL (3.8-4.8); Prot Elec - Alpha1 0.3 g/dL (0.2-0.3); Prot Elec - Alpha2 0.7 g/dL (0.5-0.9); Prot Elec - Beta 1 0.5 g/dL (0.4-0.6); Prot Elec - Beta 2 0.5 g/dL (0.2-0.5); Prot Elec - Gamma 1.2 g/dL (0.8-1.7); Prot Elec - Total Protein 7.3 g/dL (6.1-8.1)
[2023-12-12 05:58] LABS: IgA 218 mg/dL (47-310); IgG 1242 mg/dL (600-1640); IgM 173 mg/dL (50-300)
== END 2023-12-05 09:57 | disposition home or self-care (01) ==
LOC: HO.HHCL 09:56
PROVIDERS: Visit Provider Student in an Organized Health Care Education/Training Program
DX: E87.8 Other disorders of electrolyte and fluid balance, not elsewhere classified (principal)
CPT/HCPCS: 36415; 80061; 82784; 83735; 84165; 86334

== ENCOUNTER 2024-01-15 16:45 | Outpatient (REF) | payer MEDICAID, SELFPAY ==
[2024-01-20 16:23] LABS: PEU-Protein Creat Ratio Rand 0.078 (0.024-0.184); PEU-Rand. Prot/Creat Ratio 78 mg/g creat (24-184); PEU-Random Ur. Gamma Globulin 0 %; PEU-Random Urine A1 Globulin 0 %; PEU-Random Urine A2 Globulin 0 %; PEU-Random Urine Albumin 100 %; PEU-Random Urine Beta Globulin 0 %; PEU-Random Urine Creatinine 129 mg/dL (20-275); PEU-Random Urine Protein 10 mg/dL (5-24)
== END 2024-01-15 16:46 | disposition home or self-care (01) ==
LOC: HO.HHCLNP 16:45
PROVIDERS: Visit Provider Student in an Organized Health Care Education/Training Program
DX: E87.8 Other disorders of electrolyte and fluid balance, not elsewhere classified (principal)
CPT/HCPCS: 82570; 84156; 84166

== ENCOUNTER 2024-06-16 17:00 | Outpatient (REF) | payer MEDICAID, SELFPAY ==
[2024-06-17 11:47] LABS: Bacterial Vaginosis PCR NEGATIVE (Negative); Candida Group PCR DETECTED (Not Detect); Candida glab krusei PCR NOT DETECTED (Not Detect); Trichomonas vaginalis PCR NOT DETECTED (Not Detect)
== END 2024-06-16 17:01 | disposition home or self-care (01) ==
LOC: HO.HHCLNP 17:00
PROVIDERS: Visit Provider Internal Medicine
DX: R39.9 Unspecified symptoms and signs involving the genitourinary system (principal); N89.8 Other specified noninflammatory disorders of vagina; R82.79 Other abnormal findings on microbiological examination of urine
CPT/HCPCS: 0352U; 87086; 87147

== ENCOUNTER 2024-08-03 09:22 | Emergency (ER) | payer MEDICAID, SELFPAY ==
--- NOTE | ~2024-08-03 | US_ITS ---
CLINICAL HISTORY: +preg, abd cramping, N V US OB 1st trimester transabdominal Comparison: US/ID/SR - US OB BIOPHYSICAL PROFILE - 05/04/22 08:19 EDT US/ID/SR - US OB 1T NUC MEASURE - 12/08/21 09:21 EDT Findings: Single intrauterine . CRL: 0.4 cm. EGA: 6 weeks 2 days. Small amount of free fluid adjacent to the right ovary. Right ovarian corpus luteal cyst measuring 34 mm. Normal yolk sac . Cardiac activity: 110 bpm. Small subchorionic bleed. IMPRESSION: Single intrauterine estimated 6 weeks 2 days gestational age by today's ultrasound criteria. This document has been electronically signed by: Macy Knight MD on 08/03/2024 18:27:20
[2024-08-03 10:00] VITALS: BP 113/53; PULSE 81; RESP 16; TEMP 36.6; O2SAT 99; BMI 34.1
[2024-08-03 10:45] LABS: MANUAL DIFF FLAG NO
[2024-08-03 10:49] LABS: Basophils Percent Auto 0.5 % (0-2); Eosinophils Absolute Auto 0.2 X10*3/uL (0.0-0.4); Eosinophils Percent Auto 2.9 % (0-4); Hemoglobin 10.5 g/dl (12.0-16.0); Imm Gran Abs Auto 0.01 X10*3/uL (0.00-0.03); Imm Gran Pct Auto 0.2 % (0.0-0.4); Lymphocytes Absolute Auto 1.6 X10*3/uL (1.2-4.9); Lymphocytes Percent Auto 24.1 % (20-40); Mean Corpuscular HGB Conc 31.8 g/dl (31.0-35.0); Mean Corpuscular Hemoglobin 22.1 pg (27.0-33.0); Mean Corpuscular Volume 69.3 fL (80.0-98.0); Mean Platelet Volume 10.5 fL (9.4-12.3); Monocytes Absolute Auto 0.4 X10*3/uL (0.1-1.2); Monocytes Percent Auto 6.5 % (2-11); Neutrophils Absolute Auto 4.3 x10*3/uL (2.0-8.3); Neutrophils Percent Auto 65.8 % (45-73); Platelet Count 347 X10*3/uL (160-400); Red Blood Count 4.76 X10*6/uL (4.20-5.50); Red Cell Distribution Width 18.4 % (11.0-16.0); White Blood Count 6.6 X10*3/uL (4.8-10.8)
[2024-08-03 11:08] LABS: Alanine Aminotransferase 13 U/L (0-31); Albumin Level 4.2 g/dL (3.5-5.0); Alkaline Phosphatase 63 U/L (39-117); Anion Gap 9 (12-20); Aspartate Amino Transferase 20 U/L (5-31); Bilirubin Total 0.6 mg/dL (0.0-1.0); Blood Urea Nitrogen 5 mg/dL (9-16); Calcium 9.3 mg/dL (8.4-10.2); Carbon Dioxide 23 mmol/L (22-29); Chloride 110 mmol/L (96-108); Creatinine Clr Calc Pharmacy 121.6; Estimated Glomerular Filt Rate > 60; Glucose Random 86 mg/dL (60-115); Potassium 3.8 mmol/L (3.3-5.1); Sodium 138 mmol/L (135-145); Total Protein 7.5 g/dL (6.5-8.0)
[2024-08-03 11:31] LABS: HCG Quantitative 39314 mIU/mL
[2024-08-03 15:26] LABS: Appearance Urine Clear; Color Urine Yellow; Glucose Urine UA Negative (Negative); Leukocyte Esterase Urine Small (1+) (Negative); Nitrite Urine Negative (Negative); Specific Gravity - Urine 1.015 (1.005-1.025); UMIC TRIGGER UACC YES; Urine Blood Negative (Negative); Urine Ketones 40 mg/dL (Negative); Urine Protein Negative (Neg-Trace)
[2024-08-03 15:30] LABS: Bacteria Urine 1+ (None Seen); Hyaline Casts Urine 0-2 /LPF (0-2); RBC Urine 0-2 /HPF (0-2); UACC Culture Trigger YES
[2024-08-03 15:32] LABS: IDNOW Serial# 58CA691E; Strep A Nucleic Acid Negative (Negative)
--- NOTE | 2024-08-03 15:53 | ED_ITS ---
HPI - Abdominal Pain General Chief Complaint: Abdominal Pain Stated Complaint: vomiting Time Seen by Provider: 08/03/24 15:46 Source: patient, RN notes reviewed and old records reviewed Mode of arrival: ambulatory History of Present Illness ED Provider: Zonia Ruano PA-C HPI narrative: 29-year-old female presenting to the ED complaining of abdominal cramping, nausea, vomiting, and inability to tolerate p.o. x last week. Admits to positive test at home 2 weeks ago, LMP 06/20/24. Denies fever, chills, vaginal bleeding, vaginal discharge, dysuria, hematuria, flank pain Related Data Home Medications ?Medication ?Instructions ?Recorded ?Confirmed multivitamin 1 tab PO DAILY 09/04/23 Previous Rx's ?Medication ?Instructions ?Recorded ferrous sulfate 325 mg (65 mg 325 mg PO DAILY 30 days #30 tabs 04/03/22 iron) tablet,delayed release blood sugar diagnostic (FreeStyle #100 ea 04/25/22 Lite Strips) blood-glucose meter (FreeStyle #1 ea 04/25/22 Lite Meter kit) lancets 28 gauge (FreeStyle #100 ea 04/25/22 Lancets) cephalexin 250 mg capsule 250 mg PO Q6H 5 days #20 caps 08/03/24 pyridoxine (vitamin B6) 25 mg 25 mg PO TID PRN nausea and 08/03/24 tablet vomiting #20 tabs Allergies Allergy/AdvReac Type Severity Reaction Status Date / Time dust Allergy Mild Runny Nose Uncoded 08/03/24 10:05 dogs/cats Allergy Unknown Watery Eye Uncoded 08/03/24 10:05 latex Allergy Unknown rash Uncoded 08/03/24 10:05 Review of Systems Review of Systems Yes all other systems are reviewed and are negative Constitutional: Reports as per [facility] Past Medical History Attestation statement: The following information was validated with the patient. Source: old records reviewed Medical History Abnormal glucose affecting Hx of ectopic History of spontaneous Surgical History Hx of dilation and curettage Family History Family History Mother HTN (hypertension) Sickle cell trait Sister No problems noted. Maternal Aunt Breast cancer Social History Social History Household Members: Children Housing: Apartment Are you a primary healthcare advisory services manager to a significant other at home: No Do you presently have visiting nurse or other home services: No Alcohol intake: never Patient Tobacco Use Status: Former Tobacco user Tobacco use type: Cigarette Smoked in Last 30 Days: No Use of substances other than those prescribed or required for medical reasons: No Trauma History: none voiced Special anastasia needs: No Agree to transfusion: Yes Advance Directives: No Advance Directives Information Provided: Yes Do you have a plan to hurt others: No Plan Patient : Yes Current occupational status: employed 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 Sexual orientation: Straight/Heterosexual Gender identity: Female Physical Exam ED Vital Signs: Vital Signs - 24 hr 08/03/24 10:00 08/03/24 18:45 Temperature 97.9 F 97.7 F Pulse Rate 81 100 Respiratory Rate 16 16 Blood Pressure 113/53 L Pulse Oximetry 99 100 Oxygen Delivery Method Room Air Room Air BMI result Body Mass Index 34.1 Const General: cooperative, healthy appearing and no acute distress Orientation/consciousness: patient oriented x3 Limitations: no limitations HENMT Head: Yes normal to inspection and Yes atraumatic Ears: hearing grossly normal bilaterally General nose exam: Normal external nose present Face and sinus: Yes normal facial exam Eyes General: appearance normal, both eyes and all related structures EOM: EOMs intact bilaterally Neck Neck: Yes normal visual inspection and Yes no meningeal signs Resp Effort & Inspection: normal respiratory effort and no respiratory distress Cardio Rate: regular rate GI Inspection: Yes normal to inspection Palpation (GI): Soft to palpation, nontender, no guarding and not rigid General: Yes no CVA tenderness Back/Spine/Pelvis Back: no CVA tenderness Skin Rashes: no rashes Wounds: no wounds Neuro General: patient oriented x3, tone normal and no meningeal signs Cranial nerves: Yes CN's II-XII intact bilaterally Gait exam (Neuro): Normal gait present Extrem General: Yes normal to inspection Course Course Course Narrative: -1830--chronic anemia. Labs otherwise reassuring. HCG 39,314 -UA with 40 ketones, + infected with WBCs and leuk esterase > we will give p.o. Keflex US OB <= 14 weeks fetus IMPRESSION: Single intrauterine estimated 6 weeks 2 days gestational age by today's ultrasound criteria. > patient is tolerating p.o. in the ED. Recommended close OBGYN follow-up, initiating vitamin & strict return precautions discussed including persistent or worsening pain, vaginal bleeding/discharge, inability to tolerate p.o. to return to the ED immediately Results discussed with patient including worrisome signs and symptoms and strict return precautions, and when to return to the emergency department. They verbalized understanding and feel safe for discharge at this time. Medical Decision Making Medical Decision Making [facility] Narrative: 29-year-old female presenting to the ED complaining of abdominal cramping, nausea, vomiting, and inability to tolerate p.o. x last week. On exam vital signs stable, NAD, nontoxic appearing, abdomen soft/nontender, no CVAT. Concern for new vs hyperemesis vs metabolic abnormalities vs ectopic. Lower suspicion for acute appendicitis/diverticulitis at this time. Rule out infection including UTI Plan: Labs, UA, ultrasound, IVF, antiemetics, p.o. trial Please refer to course for remaining clinical decision making, interpretation of labs/imaging results, and discussions with consultants and/or family members. Differential Diagnosis Differential Diagnoses: The differential diagnosis associated with the presentation includes As above Admission/Observation Consideration of admission/observation: Escalation of care including admission/observation considered Lab Data [facility] Lab Attestation statement: I reviewed the patient's lab results. 08/03/24 10:41 08/03/24 10:41 Labs: Lab Results 08/03/24 08/03/24 Range/Units 10:41 15:20 WBC 6.6 (4.8-10.8) X10*3/uL RBC 4.76 (4.20-5.50) X10*6/uL Hgb 10.5 L (12.0-16.0) g/dl Hct 33.0 L (37.0-47.0) % MCV 69.3 L (80.0-98.0) fL MCH 22.1 L (27.0-33.0) pg MCHC 31.8 (31.0-35.0) g/dl RDW 18.4 H (11.0-16.0) % Plt Count 347 (160-400) X10*3/uL MPV 10.5 (9.4-12.3) fL Immature Gran % (Auto) 0.2 (0.0-0.4) % Neut % (Auto) 65.8 (45-73) % Lymph % (Auto) 24.1 (20-40) % [place] % (Auto) 6.5 (2-11) % Eos % (Auto) 2.9 (0-4) % Baso % (Auto) 0.5 (0-2) % Lymph # (Auto) 1.6 (1.2-4.9) X10*3/uL [place] # (Auto) 0.4 (0.1-1.2) X10*3/uL Eos # (Auto) 0.2 (0.0-0.4) X10*3/uL Baso # (Auto) 0.0 (0.0-0.2) X10*3/uL Abs Immat Gran (auto) 0.01 (0.00-0.03) X10*3/uL Absolute Neuts (auto) 4.3 (2.0-8.3) x10*3/uL Absolute Nucleated RBC 0.000 (0.0-0.012) X10*3/uL Nucleated RBC % (auto) 0.0 (0.0-0.2) /100WBC Sodium 138 (135-145) mmol/L Potassium 3.8 (3.3-5.1) mmol/L Chloride 110 H (96-108) mmol/L Carbon Dioxide 23 (22-29) mmol/L Anion Gap 9 L (12-20) BUN 5 L (9-16) mg/dL Creatinine 0.70 (0.5-1.4) mg/dL Estim Creat Clear Calc 121.6 Estimated GFR > 60 Random Glucose 86 (60-115) mg/dL Calcium 9.3 (8.4-10.2) mg/dL Magnesium 2.0 (1.6-2.6) mg/dL Total Bilirubin 0.6 (0.0-1.0) mg/dL AST 20 (5-31) U/L ALT 13 (0-31) U/L Alkaline Phosphatase 63 (39-117) U/L Total Protein 7.5 (6.5-8.0) g/dL Albumin 4.2 (3.5-5.0) g/dL Lipase 14 (8-78) U/L Beta HCG, Quant 81140 mIU/mL Urine Color Yellow Urine Appearance Clear Urine pH 6.0 (5.0-9.0) Ur Specific [place] 1.015 (1.005-1.025) Urine Protein Negative (Neg-Trace) mg/dL Urine Glucose (UA) Negative (Negative) mg/dL Urine Ketones 40 (Negative) mg/dL Urine Blood Negative (Negative) Urine Nitrite Negative (Negative) Ur Leukocyte Esterase Small (1+) H (Negative) Urine RBC 0-2 (0-2) /HPF Urine WBC 6-10 H (0-5) /HPF Ur Squamous Epith Cells 3-5 (0-2) /HPF Urine Bacteria 1+ (None Seen) Hyaline Casts 0-2 (0-2) /LPF Influenza Type A (PCR) NEGATIVE (Negative) Influenza Type B (PCR) NEGATIVE (Negative) RSV RNA Qual (PCR) NEGATIVE (Negative) SARS-CoV-2 RNA (RT-PCR) NEGATIVE (Negative) S. pyogenes GrpA SUDHA Negative (Negative) Independent Interpretation I performed an independent interpretation of an: Ultrasound Radiology Impression Discussion of test interpretation with radiology: I have reviewed the radiologist's reading. External Record Review External record reviewed: Inpatient record, Office record, Outpatient record, Prior outpatient labs, Prior outpatient radiology, Primary care record and Outside ED record Tests considered The following testing was considered but not selected: As above Prescription Management I considered prescription management with: Pain Medication and Antibiotic Chronic Conditions Patient?s care impacted by: Other Social Determinants Patient?s care significantly limited by Social Determinants of Health including: Other Social Determinant of Health Medications Administered Discontinued Medications Generic Name Dose Route Start Last Admin Trade Name Freq PRN Reason Stop Dose Admin Sodium Chloride 1,000 mls @ 999 mls/hr 08/03/24 16:00 08/03/24 18:22 Ns IV 08/03/24 17:00 Infused .Q1H1M BEAR Infusion Pyridoxine HCl 25 mg 08/03/24 15:56 08/03/24 17:14 Pyridoxine Hcl (Vitamin B6) 50 Mg Tablet PO 08/03/24 15:57 25 mg ONCE ONE Administration Discharge Plan Discharge Clinical Impression: Early stage of , Nausea and vomiting in , UTI (urinary tract infection) during Patient Disposition: Home, Self-Care Instructions: Nausea and Vomiting in (ED), (ED), Urinary Tract Infection in (ED) Additional Instructions: Your blood work and ultrasound are consistent with a single intrauterine estimated at 6 weeks and 2 days. There is a small subchorionic bleed YOU NEED TO HAVE CLOSE FOLLOW-UP WITH YOUR OBGYN. PLEASE FOLLOW UP RELATED PRECAUTIONS, AVOID ALCOHOL AND DRUG USE. PLEASE START TAKING VITAMIN You have a UTI. Keflex as an antibiotic please take as prescribed until completion If you develop abdominal pain, vaginal bleeding, vaginal discharge, persistent nausea/vomiting, you are unable to eat or drink you need to return to the ED immediately. Pyridoxine, vitamin B6, will help with nausea and vomiting. This is safe in Prescriptions: New pyridoxine (vitamin B6) 25 mg tablet 25 mg PO TID PRN (Reason: nausea and vomiting) Qty: 20 0RF cephalexin 250 mg capsule 250 mg PO Q6H 5 Days Qty: 20 0RF No Action ferrous sulfate 325 mg (65 mg iron) tablet,delayed release (DR/EC) 325 mg PO DAILY 30 Days Qty: 30 1RF (DME) lancets [FreeStyle Lancets] 28 gauge misc See Rx Instructions .MEDSUPPLY Qty: 100 1RF Rx Instructions: As directed QID (DME) FreeStyle Lite Strips Strip See Rx Instructions .MEDSUPPLY Qty: 100 1RF Rx Instructions: QID (DME) blood-glucose meter [FreeStyle Lite Meter] Kit See Rx Instructions miscellaneous .MEDSUPPLY Qty: 1 0RF Rx Instructions: As directed multivitamin Tablet 1 tab PO DAILY Referrals: [facility] [Provider Group] [facility] [employer] [place] [Outside] [facility] [employer] [place] [Outside] Stand Alone Forms: Work/School Release Print Language: Egyptian
[2024-08-03 16:10] LABS: Lipase 14 U/L (8-78)
[2024-08-03 16:27] LABS: Influenza A PCR NEGATIVE (Negative); Influenza B PCR NEGATIVE (Negative); Resp Syncy Virus RNA Qual PCR NEGATIVE (Negative); SARS COV2 PCR INHOUSE NEGATIVE (Negative)
[2024-08-03] MEDS: 0.9 % Sodium Chloride 1,000 ML 999 ML IV (17:09)
[2024-08-03] MEDS: Pyridoxine HCl (Vitamin B6) 50 MG TABLET 25 MG PO (17:14)
[2024-08-03 18:45] VITALS: PULSE 100; RESP 16; TEMP 36.5; O2SAT 100
[2024-08-03 19:20] VITALS: BP 121/64; PULSE 87; RESP 16; TEMP 36.5; O2SAT 100
--- OUTSIDE RECORDS SUMMARY | 2024-08-03 19:49 | XMS_ITS | Clinical Summary ---
Author Organization [facility] Address [address] [place] [address] Care Team Providers Care Dinkey Operator Slate Name Role Phone Physician, Pcp Unknown Primary Care Provider Irena vailable Allergies No known active allergies Medications Medication Sig Dispensed Refills Start Date End Date Status PNV no.95/ferrous fum/folic ac ( ORAL) Take 1 Tab by mouth daily. 02/11/2020 Active cholecalciferol (VITAMIN D-3) 50 mcg (2,000 unit) tablet Take 1 tablet (2,000 Units total) by mouth 1 (one) time each day. 04/16/2018 Active Active Problems Problem Noted Date Diagnosed Date Chlamydia infection affecting in first trimester 04/23/2018 Overview (07/28/2024): Tx with zithromax KEN 1 month 05/23/18 results: Sickle cell trait 04/02/2018 Overview (07/28/2024): FOB states he has been tested and has tested negattive Immunizations Name Administration Dates Next Due Hepatitis B (Claurez-R-Geclx , Recombivax HB-Adult) 19yo and older 08/15/2017 Surgical History Surgery Date Site/Laterality Comments OTHER SURGICAL HISTORY PROCEDURE: DENIES PREVIOUS SURGERY Medical History Medical History Date Comments Anxiety state DX:Anxiety state Asthma DX:Asthma Family History Medical History Relation Name Comments Hypertension Mother Breast cancer Neg Hx Colon cancer Neg Hx Ovarian cancer Neg Hx Prostate cancer Neg Hx Relation Name Status Comments Mother Social History Tobacco Use Types Packs/Day Years Used Date Smoking Tobacco: Never Smokeless Tobacco: Never Alcohol Use Standard Drinks/Week Comments No 0 (1 standard drink = 0.6 oz pur e alcohol) Sex and Gender Information Value Date Recorded Sex Assigned at Not on file Gender Identity Not on file Sexual Orientation Not on file Job Start Date Occupation Industry Not on file Not on file Not on file Obstetrics History Plan of Treatment Upcoming Encounters Date Type Department Care Team ([facility] st Contact Info) Description 08/18/2024 1:40 PM EST Office Visit Obstetrics and Gynecology - [address] [id number] Vianney Berry PA [address] [place] [address] Health Maintenance Due Date Last Done Comments Pneumococcal Vaccine: Pediatrics (0 to 5 Years) and At-Risk Patients (6 to 64 Years) (1 of 2 - PCV) 2003 DTaP,Tdap,and Td Vaccines (1 - Tdap) 02/25/2016 Hepatitis B Vaccines (2 of 3 - 19+ 3-dose series) 09/12/2017 08/15/2017 Cervical Cancer Screening: Pap Smear 04/16/2021 04/16/2018, 04/16/2018, 04/16/2018, Additional history exists COVID-19 Vaccine ( - season) 2024 Influenza Vaccine (#1) 2024 Depression Screening 07/27/2024 Hepatitis C Screening 07/27/2024 Social Influencers of Health Screening 07/27/2024 HIV Screening Completed 04/02/2018 HIB Vaccines Aged Out No longer eligi ble based on patient's age to complete this topic HPV Vaccines Aged Out No longer eligi ble based on patient's age to complete this topic Hepatitis A Vaccines Aged Out No long er eligible based on patient's age to complete this topic IPV Vaccines Aged Out No longer eligi ble based on patient's age to complete this topic MMR Vaccines Aged Out No longer eligi ble based on patient's age to complete this topic Meningococcal ACWY Vaccine Aged Out N o longer eligible based on patient's age to complete this topic RSV Immunization Patients Under 20 months Aged Out No longer eligible based on patient's age to complete this topic Varicella Vaccines Aged Out No longer eligible based on patient's age to complete this topic Procedures Procedure Name Priority Date/Time Associated Diagnosis Comments PAP SMEAR Routine 04/16/2018 HM HIV SCREENING Routine 04/02/2018 from Last 3 Months or Most Recently Relevant to Health Maintenance Results * Pap smear (04/16/2018) 04/16/2018 Narrative HISTORICAL TESTING LAB RESULTING AGENCY - 04/18/2018 11:37 AM EDT [id number] RESULTS OF GEN-PROBE APTIMA COMBO 2 ASSAY CHLAMYDIA: ?POSITIVE N. GONORRHOEAE: ? NEGATIVE JJ YUEN M.D., PATHOLOGIST (CASE ELECTRONICALLY SIGNED 04 18 2018) CLINICAL INFORMATION: Z12.4, Z34.81, , PAP HX: 1ST PAP Z34.81 ENCOUNTER FOR SUPERVISION OF OTHER NORMAL , FIRST TRIMESTER SOURCE: THINPREP PAP FOR CT/GC GROSS DESCRIPTION: THINPREP VIAL RECEIVED. PHYSICIANS LOREN SARAVIA/#/ Loren Saravia CNGeovanna LAB CYTOLOGY ORDERAB LES HISTORICAL TESTING LAB RESULTING AGENCY * Hm HIV Screening (04/02/2018) HIV Screening abstracted Historical Provider MD NEWTON Landry from Last 3 Months or Most Recently Relevant to Health Maintenance Care Teams Dinkey Operator Slate Relationship Specialty Start Date End Date Physician, Pcp Unknown PCP - General 07/27/24
--- OUTSIDE RECORDS SUMMARY | 2024-08-03 19:49 | XMS_ITS | Encounter Summary ---
Author Organization [employer] Address [address] [place] [address] [address] [place] [address] Care Team Providers Care Handbag Framer Name Role Phone Gwendolyn Gotti MD Primary Care Pro vider Encounter Details Date Type Department Care Team (Late st Contact Info) Description 04/10/2023 Abstract [facility] MEDICINE [address] [place], [place] [phone] Gwendolyn Gotti MD [address], [place] [phone] Social History Tobacco Use Types Packs/Day Years Used Date Smoking Tobacco: Never Smokeless Tobacco: Never Comments Unknown Sex and Gender Information Value Date Recorded Sex Assigned at Female 05/07/2022 10:20 AM EDT Legal Sex Female 10:20 AM EDT Gender Identity Choose not to disclose 10:20 AM EDT Sexual Orientation Straight 05/09/2023 11 :13 AM EDT documented as of this encounter Plan of Treatment Not on file documented as of this encounter Visit Diagnoses Not on filedocumented in this encounter Care Teams Handbag Framer Relationship Specialty Start Date End Date Gwendolyn Gotti MD [address], [place] [phone] PCP - General Internal Medicine 12/07/22 documented as of this encounter
--- OUTSIDE RECORDS SUMMARY | 2024-08-03 19:49 | XMS_ITS | Encounter Summary ---
Author Organization [employer] Address [address] [place] [address] [address] [address] Care Team Providers Care Compounding Pharmacy Technician Name Role Phone Shayla Nuñez Primary Care Provider [phone] Gwendolyn Gotti MD Primary Care Pro vider Encounter Details Date Type Department Care Team ([facility] st Contact Info) Description 07/31/2022 Telephone [facility] MEDICINE [address] [place] [address] Shayla Nuñez FNP [address] [place] [address] [phone] Social History Tobacco Use Types Packs/Day Years Used Date Smoking Tobacco: Never Assessed Comments Unknown Sex and Gender Information Value [...] on filedocumented in this encounter Care Teams Compounding Pharmacy Technician Relationship Specialty Start Date End Date Shayla Nuñez FNP [address] [place] [address] PCP - General Family Medicine 03/05/22 12/06/22 Gwendolyn Gotti MD [address] [place] [address] PCP - General Internal Medicine 12/07/22 documented as of this encounter
--- OUTSIDE RECORDS SUMMARY | 2024-08-03 19:49 | XMS_ITS | Clinical Summary ---
Author Organization [employer] Address [address] [facility] [address] [place] [address] Care Team Providers Care Manufacturing Engineering Technician Name Role Phone Gwendolyn Gotti MD Primary Care Pro vider Allergies Active Allergy Reactions Criticality Noted Date Comments Cat Dander 06/17/2023 Other reaction(s): Watery eye Dog Epithelium 06/17/2023 Other reaction(s): Watery eye Dust Mite Extract Runny nose 06/17/2023 Latex Rash Low 06/17/2023 Medications cholecalciferol (Vitamin D-3) 50 MCG (2000 UT) capsule Take by mouth at bed time. 2 Active albuterol (ProAir HFA) 108 (90 Base) MCG/ACT inhaler inhale 2 puff by inhalation route every 4 HOURS as needed for SHORTNESS OF BREATH/WHEEZE 18 g 2 3 Active fluticasone (Flovent HFA) 44 MCG/ACT inhaler Inhale 2 puffs in the morning and at bedtime. inhale 1 puff by inhalation route 2 times every day, rinse mouth with water after 10.6 g 2 4 Active psyllium (Metamucil Smooth Texture) 58.6 % powder Take 5.12 g (3 g of fiber) by mouth 2 times daily. 283 g 2 4 01/15/20 25 Active Active Problems Problem Noted Date Diagnosed Date UTI symptoms 06/16/2024 Vaginal discharge 06/16/2024 Encounter for preventive care 06/16/2024 Assessment & Plan (06/16/2024 4:36 PM EST): See HPI Narrow anion gap 12/05/2023 Microcytic anemia 07/09/2023 Hx of ectopic 05/10/2023 BPPV (benign paroxysmal positional vertigo) 09/2022 Obesity (BMI 30-39.9) 05/10/2023 Mixed anxiety depressive disorder 05/09/2023 05/09/2023 Routine health maintenance 08/23/2022 Overview (08/23/2022): STIs: ordered pap: 04/2021 nilm, repeat 3 years IZ: MCV4 booster due, will give at next visit Moderate persistent asthma 08/09/2016 Sickle cell trait 09/18/2013 Resolved Problems Problem Noted Date Diagnosed Date Resolved Date Epigastric pain 07/09/2023 09/17/2023 test positive 07/09/202309/05 Encounters Date Type Department Care Team Description 06/17/[address] [address] Jayla Herrera, RN Results 06/17/2024 Orders Only [address] [address] Gwendolyn Berry MD Yeast infection (Primary Dx) 06/16/2024 2:45 PM EST Office Visit [address] [address] Gwendolyn Berry MD UTI symptoms (Primary Dx); Vaginal discharge; Encounter for immunization; Encounter for preventive care 06/16/2024 Travel 06/15/[address] [address] Gideon Camara MA Chart Prep 06/02/2024 Patient Outreach [address] [address] Gwendolyn Gotti MD Pre-visit Planning ([facility] screening completed on 09/17/2023) from Last 3 Months Immunizations Name Administration Dates Next Due DTaP 08/02/2001, 8,1997,07/20,1997 HPV, Quadrivalent 02/01/2010,09/13/2009,02/05/20 09 Hep A, Unspecified 09/13/2009,02/04/2009 Hep A, ped/adol, 2 dose 09/13/2009,02/04/2009 Hep B, Adolescent or Pediatric 1997,1997,1997 Hep B, adult 09/17/2023,07/09/2023,08/15/2017 Hib (HbOC) 06/29/1998, 8,1997,05/12 IPV 05/16/2001, 8,1997,05/22 Influenza injectable quadriv alent IIV4 with preservative 04/18/2018,03/25/2017,03/29/2016 Influenza injectable quadriv alent preservative free 05/09/2023,04/25/2021,04/14/2020,08/07 Influenza, IIV3, injectable 05/18/2022,1 ,04/14/2020,08/07,04/18/2018,03/25/2017,03/29/2016 Influenza, Split (incl. jose fied surface antigen) 09/18/2013,09/12/2012 Influenza, seasonal, injecta ble, preservative free 06/16/2024 MMR 05/04/2008,10/02/2007,06/29/1998 Meningococcal ACWY, unspecified 02/04/2009 Meningococcal MCV4P ACYW-135 02/04/2009 Moderna Covid-19 Vaccine 6+ Bivalent 12/05/2022 Pfizer Covid-19 Vaccine 12+ 06/16/2024, Pneumococcal Conjugate PCV 20 05/09/2023 Pneumococcal Polysaccharide PPSV23 11/01/2018, Tdap 05/25/2022,10/14/2018,02/04/2009 Varicella 10/02/2007,06/29/1998 Family History Medical History Relation Name Comments HTN Mother Breast cancer Mother's Sister Relation Name Status Comments Mother Mother's Sister Social History Tobacco Use Types Packs/Day Years Used Date Smoking Tobacco: Never Passive Smoke Exposure: Never Smokeless Tobacco: Never Tobacco Cessation:Counseling Given: Not Answered Alcohol Use Standard Drinks/Week Comments Never 0 (1 standard drink = 0.6 oz pur e alcohol) Depression Answer Date Recorded Patient Health Questionnaire-9 Score 8 07/09/2023 Patient Health Questionnaire-9 Score 8 07/09/2023 Last PHQ-9: Questionnaire Data Not on file 0 07/09/2023 Housing Stability Answer Date Recorded What is your housing situation today? I have nayeli felton 09/17/[address] you li ve. Do you have problems with any of the following? None of the above 09/17/2023 Food Insecurity Answer Date Recorded Within the past 12 months, y ou worried that your food would run out before you got money to buy more: Never True 09/17/2023 Within the past 12 months,th e food you bought just didn't last and you didn't have enough money to get more: Never True 06/2024 Transportation Answer Date Recorded In the past 12 months, has l ack of transportation kept you from medical appts, meetings, work or from getting things needed for daily living? No 09/17/2023 Utilities Answer Date Recorded In the past 12 months, has t he electric, gas, oil or water company threatened to shut off services in your home? No 09/17/2023 Depression Answer Date Recorded Patient Health Questionnaire-2 Score 1 07/09/2023 Comments No Sex and Gender Information Value Date Recorded Sex Assigned at Female 05/07/2022 10:20 AM EDT Legal Sex Female 10:20 AM EDT Gender Identity Choose not to disclose 10:20 AM EDT Sexual Orientation Straight 05/09/2023 11 :13 AM EDT Last Filed Vital Signs Vital Sign Reading Time Taken Comments Blood Pressure 128/68 06/16/2024 2:47 PM EST Pulse 73 06/16/2024 2:47 PM EST Temperature 36.2 ??C (97.1 ??F) 06/16/2024 2:47 PM ES T Respiratory Rate 20 06/16/2024 2:47 PM EST Oxygen Saturation 100% 06/16/2024 2:47 PM EST Inhaled Oxygen Concentration - - Weight 85.1 kg (187 lb 9.6 oz) 06/16/2024 2:47 P M EST Height 157.5 cm (5' 2 ) 06/16/2024 2:47 PM EST Body Mass Index 34.31 06/16/2024 2:47 PM EST Plan of Treatment Health Maintenance Due Date Last Done Comments Family Planning (PISQ) 02/25/2012 HPV/Cotest 07/26/2023 11/30/2021, 11/06, 11/30/2021 Depression Screening 07/09/2024 07/09/2023, 07/09/19 24 Pap Smear 09/04/2024 09/04/2023, 11/06, 04/25/2021 SDOH Screening 09/16/2024 09/17/2023 Alcohol/Substance Use Screening 06/16/2025 06/16/2024 Tobacco Screening 06/16/2025 06/16/2024 Lipid Panel 12/04/2028 12/05/2023, 08/2022, 04/25/2021 DTaP/Tdap/Td Vaccines (9 - Td or Tdap) 05/25/2032 05/25/2022, 10/14/2018, 02/04/2009, Additional history exists Zoster Vaccines (1 of 2) 2047 RSV Patients and Patients Aged 60 years or older (1 - 1-dose 75+ series) 02/25/2072 HIB Vaccines Completed 06/29/1998, 10/06, 1997, Additional history exists IPV Vaccines Completed 05/16/2001, 10/06, 1997, Additional history exists Meningococcal Vaccine Aged Out 02/04/2009, 009 No longer eligible based on patient's age to complete this topic Hepatitis A Vaccines Completed 09/13/2009, 09/13/2009, 02/04/2009, Additional history exists HPV Vaccines Completed 02/01/2010, 03/2010, 02/04/2009 HIV Screening Completed 05/09/2023, 11/2021, 04/25/2021, Additional history exists Hepatitis C Screening Completed 05/09/2023 , 11/09/2021, 04/25/2021, Additional history exists Pneumococcal Vaccine: Pediatrics (0 to 5 Years) and At-Risk Patients (6 to 64 Years) Completed 05/09/2023, 11/01/2018, 12/12/2016 Hepatitis B Vaccines Completed 09/17/2023, 07/09/2023, 08/15/2017, Additional history exists COVID-19 Vaccine Completed 06/16/2024, 06/2024, 12/05/2022, Additional history exists Influenza Vaccine Completed 06/16/2024, , 05/18/2022, Additional history exists RSV under 20 months Aged Out No longe r eligible based on patient's age to complete this topic Rotavirus Vaccines Aged Out No longer eligible based on patient's age to complete this topic Procedures Procedure Name Priority Date/Time Associated Diagnosis Comments URINALYSIS, COMPLETE, WITH REFLEX TO CULTURE Routine 08/03/2024 3:20 PM EST Yeast infection SARS COV2/INFLUENZA A/B AND RSV RNA QL NAAT Routine 08/03/2024 3:20 PM EST Yeast infection STREP A NUCLEIC ACID Routine 08/03/2024 3:20 PM EST Yeast infection HCG, TOTAL, QN Routine 08/03/2024 10:41 AM EST Yeast infection COMPREHENSIVE METABOLIC PANEL Routine 08/03/2024 10:41 AM EST Yeast infection CBC WITH AUTO DIFFERENTIAL Routine 08/03/2024 10:41 AM EST Yeast infection POCT URINALYSIS DIPSTICK Routine 06/16/2024 3:58 PM EST UTI symptoms Vaginal discharge CULTURE, URINE, ROUTINE Routine 06/16/2024 12:00 AM EST UTI symptoms Vaginal discharge BACTERIAL VAGINOSIS PANEL Routine 06/16/2024 12:00 AM EST UTI symptoms Vaginal discharge LIPID PANEL, STANDARD Routine 12/05/2023 9:57 AM EDT Narrow anion gap PAP SMEAR Routine 09/04/2023 10:37 AM EST HEPATITIS C AB W/REFL TO HCV RNA, QN, PCR Routine 05/09/2023 11:50 AM EDT Annual physical exam HIV 1/2 ANTIGEN/ANTIBODY, FOURTH GENERATION W/RFL Routine 05/09/2023 11:50 AM EDT Annual physical exam ZZZ HISTORICAL HPV E6/E7 RFLX JAMAL 16 18/45 Routine 11/30/2021 12:34 PM EDT from Last 3 Months or Most Recently Relevant to Health Maintenance Results * Strep A Nucleic Acid (08/03/2024 3:20 PM EST) IDNOW SERIAL# [id number] [facility] Strep A Nucleic Acid Negative Negative [facility] Comment:All test results mus t be correlated with clinical findings.This test has not been evaluated for monitoring treatment ofinfection.Additional follow-up testing using the culture method isrequired if the result is negative and clinical symptomspersist, or in the event of an acute rheumatic feveroutbreak. 08/03/2024 3:20 PM EST 08/03/2024 3:22 PM EST us Generic External Data Provider LAB MICROBIOLOGY - GENERAL ORDERABLES Final Result [facility] [address] [place] [address] [phone] * (ABNORMAL) Urinalysis, Complete, with Reflex to Culture (08/03/2024 3:20 PM EST) Color Urine Yellow [facility] Appearance Urine Clear [facility] PH 6.0 5.0 - 9.0 [facility] Glucose Urine UA Negative Negative mg/dL [facility] Urine Blood Negative Negative [facility] Specific [place] - Urine 1.015 1.005 - 1.025 [facility] Urine Protein Negative Neg-Trace mg/dL [facility] Urine Ketones 40 Negative mg/dL [facility] Nitrite Urine Negative Negative [facility] Leukocyte Esterase Urine Small (1+)(A) Negative [facility] RBC Urine 0-2 0 - 2 /HPF [facility] Urine WBC 6-10(A) 0 - 5 /HPF [facility] Urine Squamous Epithelial Cell 3-5 0 - 2 /HPF [facility] Urine Bacteria 1+ None Seen [facility] Hyaline Casts, Urine 0-2 0 - 2 /LPF [facility] 08/03/2024 3:20 PM EST 08/03/2024 3:22 PM EST Narrative [facility] - 08/03/2024 3:32 PM EST [id number], Clean Catch us Generic External Data Provider LAB URINE ORDERAB LES Final Result [facility] [address] [place] [phone] * SARS-CoV-2 RNA, Influenza A/B, and RSV RNA, Ql NAAT (08/03/2024 3:20 PM EST) Influenza A PCR NEGATIVE Negative [facility] Influenza B PCR NEGATIVE Negative [facility] Resp Syncy Virus RNA Qual PCR NEGATIVE Negative [facility] SARS COV2 PCR NEGATIVE Negative [facility] Comment:All test results mus t be correlated with clinical findings.Negative results do not preclude SARS-CoV2, influenza Avirus, influenza B virus and/or RSV infectionand should not be used as the sole basis for treatment orother patient management decisions. Negative results must becombined with clinical observations, patient history, andepidemiological information.This test has not been evaluated for monitoring treatment ofinfection.This test has been authorized by the FDA under an EmergencyUse Authorization (EUA) for use by authorized laboratories.Testing performed on the [employer] GeneXpert utilizingreal-time RT-PCR.All SARS CoV2 and positive influenza A/B results arereported to [facility]. 08/03/2024 3:20 PM EST 08/03/2024 3:22 PM EST us Generic External Data Provider LAB MICROBIOLOGY - GENERAL ORDERABLES Final Result [facility] [address] [place] [phone] [phone] * (ABNORMAL) CBC auto differential (08/03/2024 10:41 AM EST) White Blood Count 6.6 4.8 - 10.8 X10*3/uL [facility] Red Blood Count 4.76 4.20 - 5.50 X10*6/uL [facility] Hemoglobin 10.5(L) 12.0 - 16.0 g/dl [facility] Hematocrit 33.0(L) 37.0 - 47.0 % [facility] Mean Corpuscular Volume 69.3(L) 80.0 - 98.0 fL [facility] Mean Corpuscular Hemoglobin 22.1(L) 27.0 - 33.0 pg [facility] Mean Corpuscular HGB Conc 31.8 31.0 - 35.0 g/dl [facility] Red Cell Distribution Width 18.4(H) 11.0 - 16.0 % [facility] Platelet Count 347 160 - 400 X10*3/uL [facility] Mean Platelet Volume 10.5 9.4 - 12.3 fL [facility] Neutrophils Percent Auto 65.8 45 - 73 % [facility] Imm Gran Pct Auto 0.2 0.0 - 0.4 % [facility] Lymphocytes Percent Auto 24.1 20 - 40 % [facility] Monocytes Percent Auto 6.5 2 - 11 % [facility] Eosinophils Percent Auto 2.9 0 - 4 % [facility] Basophils Percent Auto 0.5 0 - 2 % [facility] NRBC Pct Auto 0.0 0.0 - 0.2 /100WBC [facility] Neutrophils Absolute Auto 4.3 2.0 - 8.3 x10*3/uL [facility] Imm Gran Abs Auto 0.01 0.00 - 0.03 X10*3/uL [facility] Lymphocytes Absolute Auto 1.6 1.2 - 4.9 X10*3/uL [facility] Monocytes Absolute Auto 0.4 0.1 - 1.2 X10*3/uL [facility] Eosinophils Absolute Auto 0.2 0.0 - 0.4 X10*3/uL [facility] Basophils Absolute Auto 0.0 0.0 - 0.2 X10*3/uL [facility] NRBC Abs Auto 0.000 0.0 - 0.012 X10*3/uL [facility] 08/03/2024 10:4 1 AM EST 08/03/2024 10:44 AM EST us Generic External Data Provider LAB BLOOD ORDERAB LES Final Result Performing Organization Address City/State/[facility] Co de Phone Number [facility] [address] [place] [phone] * hCG, Total, Quantitative (08/03/2024 10:41 AM EST) HCG Quantitative 39,314 mIU/mL [facility] Comment:Weeks post LMP Appro ximate hCG(Last Menstrual Period) Range (mIU/ml)3 - 4 weeks 9 - 1304 - 5 weeks 75 - 2,6005 - 6 weeks 850 - 20,8006 - 7 weeks 4000 - 100,2007 - 12 weeks 11,500 - 289,08750 - 16 weeks 18,300 - 137,75794 - 29 weeks (2nd trimester) 1,400 - 53,49661 - 41 weeks (3rd trimester) 940 - 60,000The Bailey B- hCG assay is used for the early detection ofpregnancy; it cannot be used to diagnose any conditionunrelated to . If a B-hCG level is not supportedby the clinical evidence, results should be confirmed by analternative method (qualitative urine hCG, for example). 08/03/2024 10:4 1 AM EST 08/03/2024 10:44 AM EST us Generic External Data Provider LAB BLOOD ORDERAB LES Final Result [facility] [address] [place] [phone] * (ABNORMAL) Comprehensive Metabolic Panel (08/03/2024 10:41 AM EST) Sodium 138 135 - 145 mmol/L [facility] Potassium 3.8 3.3 - 5.1 mmol/L [facility] Chloride 110(H) 96 - 108 mmol/L [facility] Carbon Dioxide 23 22 - 29 mmol/L [facility] Anion Gap 9(L) 12 - 20 [facility] Urea Nitrogen (BUN) 5(L) 9 - 16 mg/dL [facility] Creatinine, Serum 0.70 0.5 - 1.4 mg/dL [facility] Creatinine Clr Calc Pharmacy 121.6 [facility] Comment:Provided height and weight: 157.48 cm,84.5 kg.eGFR (calculated from the MDRD study equation) and eCrCl(calculated from the Cockcroft-Gault equation) are based ondifferent parameters and may not yield comparable results.If eCrCl result is absurd, please check patient'sheight/weight. Estimated Glomerular Filt Rate >60 [facility] Comment:Chronic Kidney Disea se: Estimated GFR < 60 mL/min/1.25d7Baklzi Kidney Disease: Estimated GFR < 15 mL/min/1.73m2 Glucose 86 60 - 115 mg/dL [facility] Calcium 9.3 8.4 - 10.2 mg/dL [facility] Bilirubin, Total 0.6 0.0 - 1.0 mg/dL [facility] Aspartate Amino Transferase 20 5 - 31 U/L [facility] Alanine Aminotransferase 13 0 - 31 U/L [facility] Total Protein 7.5 6.5 - 8.0 g/dL [facility] Albumin Level 4.2 3.5 - 5.0 g/dL [facility] Alkaline Phosphatase 63 39 - 117 U/L [facility] 08/03/2024 10:4 1 AM EST 08/03/2024 10:44 AM EST us Generic External Data Provider LAB BLOOD ORDERAB LES Final Result [facility] [address] [place] [phone] * POCT Urinalysis (06/16/2024 3:58 PM EST) Color, UA Yellow Clarity, UA Clear Glucose, UA Negative Bilirubin, UA Negative Ketones, UA Negative Spec Grav, UA 1.015 Blood, UA Negative Negative, None Detected pH, UA 7.0 Protein, UA Negative Urobilinogen, UA 0.2 Leukocytes, UA Trace Negative, Rare, Trace Nitrite, UA Negative Negative, None Detected Appearance, UA yellow QC Media Lot # [id number] Lot# Expiration Date Urine 06/16/2024 3:58 PM EST Gwendolyn Dow MD POINT OF CARE TEST EN TER/EDIT ORDERABLES Final Result * (ABNORMAL) Bacterial Vaginosis (06/16/2024 12:00 AM EST) TRICHOMONAS VAGINALIS DETECTION BY PCR NOT DETECTED Not Detect [facility] BACTERIAL VAGINOSIS DETECTION BY PCR NEGATIVE Negative [facility] Comment:The BV organism targ ets of the Xpert Xpress MVP test can becommensal in women; Xpert Xpress MVP positive results forbacterial vaginosis should be considered in conjunction withother clinical and patient information to determine thedisease status. Organisms that are not detected by the XpertXpress MVP test have also been reported to be associatedwith BV and aerobic vaginitis.The Xpert Xpress MVP test performance has not been evaluatedin patients under the age of 14. FUNMI GROUP DETECTION BY PCR DETECTED(A) Not Detect [facility] Funmi glab krusei PCR NOT DETECTED Not Detect [facility] Swab Vaginal structure / Unknown 06/16/2024 06/16/2024 us Gwendolyn Dow MD LAB MICROBIOLOGY - GE NERAL ORDERABLES Final Result Performing Organization Address [facility] Co de Phone Number [facility] [address] [place] [phone] * Culture, Urine, Routine (06/16/2024 12:00 AM EST) Urine Urine specimen obtained by clean catch procedure / Unknown 06/16/2024 06/16/2024 Comment:CC Narrative [facility] - 06/18/2024 3:18 PM EST Urine Culture Report Result Urine Culture 10,000 to 50,000 cfu/ml Urine Culture Mixed bacterial venancio characteristic of Urine Culture urogenital contamination. Strep agalactiae (Grp B) Quant < 10,000 cfu/mL Susc N/A Susceptibility not routinely performed on this isolate. Specimen Source: Urine clean catch us Gwendolyn Dow MD LAB MICROBIOLOGY - GE NERAL ORDERABLES Final Result Performing Organization Address [facility] de Phone Number [facility] [address] [place] [phone] * Lipid Panel, Standard (12/05/2023 9:57 AM EDT) Triglycerides 60 <150 mg/dL [facility] Comment:Desirable Triglyceri de: less than 150 mg/dLBorderline High Triglyceride 150-199 mg/dLHigh Triglyceride: 200-499 mg/dLVery High Triglyceride: greater than or equal to 5OO mg/dL Cholesterol 163 <200 mg/dL [facility] Comment:Desirable Cholestero l: less than 200 mg/dLBorderline High Cholesterol: 200-239 mg/dLHigh Cholesterol: greater than 239 mg/dL LDL Cholesterol Calculated 88 <100 mg/dL [facility] Comment:Desirable LDL: less than 100 mg/dLNear Optimal/Above Optimal LDL: 110- 129 mg/dLBorderline High LDL: 130-159 mg/dLHigh LDL: 160-189 mg/dLVery High LDL: greater than or equal to 190 mg/dL HDL Cholesterol 63 >40 mg/dL [facility] Comment:Desirable HDL: great er than 40 mg/dL Note: This HDL assay may give artificially low results in patients with liver disease. Blood Venous blood specimen / Unknown 12/05/2023 9:57 AM EDT 12/05/2023 11:20 AM EDT us Gwendolyn Zhong MD LAB BLOOD ORDERAB LES Final Result [facility] [address] [place] [phone] * Pap Smear (09/04/2023 10:37 AM EST) 09/04/2023 10:3 7 AM EST 09/05/2023 10:00 AM EST Narrative [facility] - 09/18/2023 4:14 PM EDT ----- ------- Name: Elina Gamino I ?Age/Sex: 28/F ? : 1995 Unit#: [id number] ?? Attend Dr: Chris Granda MD ?Re09/04/23 ?Status: DEP REF ? Location: HO.LNP ?Disch: ? ----- ------- SPEC : [id number] ? RECD: 09/05/23 ? STATUS: ??SOUT ? REQ NUM: [id number] ? TEJAS: 09/04/23-1037 ? SUBM DR: Chris Granda MD ? ENTERED: ??09/05/231143 ?SP TYPE: Pap Smr ?OTHR DR: Shayla Nuñez ? ORDERED: ??Pap Smear ? Interpretation ?? Satisfactory for evaluation. ?? Negative for intraepithelial lesion or malignancy. ?Clinical Information LMP: May 2023 Previous PAP test: 2021, HPV + Other history: Atypical squamous cells of undetermined significance on cytologic smear of cervix, cervical high risk human papillomavirus (HPV) DNA test positive ? Material Received ?? ThinPrep-Cervical Copies To: ?? Shayla Nuñez ?? [address] ?? [place] [address] ?? [phone] ?? Chris Granda MD ?? [address] [facility] [address] ?? [place] [address] ?? [phone] ----- ------- Signed (signature on file) SUKHI Bee ([facility]) 09/18/23 1614 ? ----- ------- ? END OF REPORT ? us Generic External Data Provider LAB CYTOLOGY VANESA DIAS Final Result Performing Organization Address [facility] de Phone Number [facility] [address] [place], [place] [phone] * Hepatitis C Antibody with Reflex to HCV, RNA, Quantitative, Real-Time PCR (05/09/2023 11:50 AM EDT) Hepatitis C Antibody Nonreactive Nonreactive [facility] Comment:Antibodies to HCV no t detected; does not exclude early acuteHCV infection. Blood Venous blood specimen / Unknown 05/09/2023 11:50 AM EDT 05/09/2023 1:13 PM EDT us Gwendolyn Zhong MD LAB BLOOD ORDERAB LES Final Result Performing Organization Address [facility] Co de Phone Number [facility] [address] [place] [phone] * HIV-1/2 Antigen and Antibodies, Fourth Generation, with Reflexes (05/09/2023 11:50 AM EDT) [facility] HIV AB/AG Nonreactive Nonreactive [facility] Comment:HIV-1 p24 Ag and/or HIV-1/HIV-2 Ab not detected.A test result that is nonreactive does not exclude thepossibility of exposure to or infection with HIV-1 and/orHIV-2. Nonreactive results in this assay for individualswith prior exposure to HIV-1 and/or HIV-2 may be due toantigen and antibody levels that are below the limit ofdetection of this assay.The [employer] HIV Ag/Ab Combo assay result andsupplemental assay results should be interpreted inconjunction with the patient's clinical presentation,history and other laboratory results. If the results areinconsistent with clinical evidence, additional testing issuggested to confirm the result. Blood Venous blood specimen / Unknown 05/09/2023 11:50 AM EDT 05/09/2023 1:13 PM EDT Gwendolyn Zhong MD LAB BLOOD ORDERAB LES Final Result [facility] [address] [place] [phone] * (ABNORMAL) HPV E6/E7 RFLX JAMAL 16 18/45 (11/30/2021 12:34 PM EDT) [facility] HPV 16 RNA NOT DETECTED NOT DETECTED [facility] HPV 18/45 RNA NOT DETECTED NOT DETECTED [facility] Comment: Methodology: [employer] Mediated Amplification Cervical sources are required for HPV testing. If a vaginal source from a patient who has had a total hysterectomy with removal of cervix was submitted, please contact the testing laboratory for alternative testing options. THIS TEST WAS PERFORMED AT: [facility] [address] [place] [address] [address] [facility],[address] [place], [place] ??[phone] KAISER CONLEY MD HPV mRNA E6/E7 rflx Detected(A) Not Detected [facility] Comment: Methodology: Sheriff'S Detective-Mediated Amplification This assay detects E6/E7 viral messenger RNA (mRNA) from 14 high-risk HPV types (16,18,31,33,35,39,45,51,52,56,58,59,66,68). Cervical sources are required for HPV testing. If a vaginal source from a patient who has had a total hysterectomy with removal of cervix was submitted, please contact the testing laboratory for alternative testing options. For additional information, please refer to http://education.[employer]/faq/JUJ342e5 (This link if provided for information/ educational purposes only.) THIS TEST WAS PERFORMED AT: [facility] [address] [place] [address] [address]LO[address] [place], [place] ??[phone] KAISER CONLEY MD 11/30/2021 12:3 4 PM EDT Dayana BerumenBurleson HISTORICAL/NON ORDERABLE LABS Fi nal Result [facility] [address] from Last 3 Months or Most Recently Relevant to Health Maintenance Insurance [place] [address] C3 Care Teams Manufacturing Engineering Technician Relationship Specialty Start Date End Date Gwendolyn Gotti MD [address] [place] [address] [phone] PCP - General Internal Medicine 12/07/22
--- OUTSIDE RECORDS SUMMARY | 2024-08-03 19:49 | XMS_ITS | Encounter Summary ---
Author Organization [employer] Address [address] [place] [address] [address] [place] [address] Care Team Providers Care Head Porter Baggage Name Role Phone Gwendolyn Gotti MD Primary Care Pro vider Encounter Details Date Type Department Care Team (Late st Contact Info) Description 04/10/2023 Abstract [facility] [address] [place], [place] [phone] Gwendolyn Gotti MD [address] [place], [place] [phone] Social History Tobacco Use Types Packs/Day Years [...] on filedocumented in this encounter Care Teams Head Porter Baggage Relationship Specialty Start Date End Date Gwendolyn Gotti MD [address] [place], [place] [phone] PCP - General Internal Medicine 12/07/22 documented as of this encounter
--- OUTSIDE RECORDS SUMMARY | 2024-08-03 19:49 | XMS_ITS | Encounter Summary ---
Author Organization [employer] Address [address] [place] [address] [place] [address] Care Team Providers Care Dental Service Technician Name Role Phone Gwendolyn Gotti MD Primary Care Pro vider Encounter Details Date Type Department Care Team ([facility] st Contact Info) Description 04/10/2023 Abstract [facility] [address] [place] [address] Gwendolyn Gotti MD [address] [place] [address] Social History Tobacco Use Types Packs/Day Years [...] on file documented as of this encounter Procedures Procedure Name Priority Date/Time Associated Diagnosis Comments COLPOSCOPY Routine 07/26/2022 THINPREP PAP AND HPV MRNA E6/E7 Routine 11/30/2021 documented in this encounter Results * Colposcopy (07/26/2022) Narrative Irena Armas - 07/26/2022 Negative colpo ??Co-testing in 12 months us Historical Provider IN CLINIC/BEDSIDE ORDERAB LES Final Result * Thinprep PAP and HPV nRNA E6/E7 (11/30/2021) 11/30/2021 us Historical Provider MD LAB PATHOLOGY ORDERABLES Final Result documented in this encounter Visit Diagnoses Not on filedocumented in this encounter Care Teams Dental Service Technician Relationship Specialty Start Date End Date Gwendolyn Gotti MD [address] [place] [phone] PCP - General Internal Medicine 12/07/22 documented as of this encounter
== END 2024-08-03 19:24 | disposition home or self-care (01) ==
PROVIDERS: Physician Assistant; Physician Assistant Medical; Emergency Provider Emergency Medicine; PCP Student in an Organized Health Care Education/Training Program
DX: O21.9 Vomiting of pregnancy, unspecified (principal); O23.41 Unspecified infection of urinary tract in pregnancy, first trimester; N39.0 Urinary tract infection, site not specified; Z3A.01 Less than 8 weeks gestation of pregnancy; Z03.818 Encounter for observation for suspected exposure to other biological agents ruled out
CPT/HCPCS: 0241U; 36415; 76801; 80053; 81001; 83690; 83735; 84702; 85025; 87086; 87651; 96360; 99284